=== PATIENT | male | born 1950 | race Hispanic/Latino ===

== ENCOUNTER 2018-07-19 15:16 | Emergency (ER) | payer OTHER ==
[2018-07-19] MEDS ORDERED: LORAZEPAM 0.5 MG TABLET ONE (17:09)
--- NOTE | 2018-07-19 17:21 | RAD REPORT ---
EXAM DESCRIPTION: RAD - Chest Single View - 07/19/2018 5:16 pm CLINICAL HISTORY: Chest pain, shortness of breath, hypertension COMPARISON: January 2018 TECHNIQUE: AP portable chest image was obtained 1707 hours . FINDINGS: No focal lung parenchymal process. No failure or volume overload. Lung markings are simila r to comparison. Heart and vasculature are normal. No measurable pleural effusion and no pneumothorax . No acute bony abnormality seen. No acute aortic findings suspected. IMPRESSION: No acute cardiopulmonary process. No significant interval change.
--- NOTE | 2018-07-19 18:15 | ER ---
Nurse's Notes [facility] Name: Viji Waller Age: 67 yrs Sex: Male : 1950 Arrival Date: 07/19/2018 Time: 15:17 Bed 5 Private MD: Stu Soriano R Diagnosis: Anxiety disorder, unspecified Presentation: 07/19 16:03 Presenting complaint: Patient states: SOB and anxiety that began this morning, also ph reports feeling light headed, hx of anxiety, denies pain or nausea. Transition of care: patient was not received from another setting of care. Onset of symptoms was July 19, 2018. Risk Assessment: Do you want to hurt yourself or someone else? Patient reports no desire to harm self or others. Initial Sepsis Screen: Does the patient meet any 2 criteria? No. Patient's initial sepsis screen is negative. Does the patient have a suspected source of infection? No. Patient's initial sepsis screen is negative. Care prior to arrival: None. 16:03 Method Of Arrival: Ambulatory ph 16:03 Acuity: AMEENA 3 ph Historical: - Allergies: 16:06 No Known Allergies; ph - PMHx: 16:06 Hypertension; Anxiety; ph - Immunization history:: Adult Immunizations up to date. - Social history:: Smoking status: Patient/guardian denies using tobacco. Screenin:00 Abuse screen: Denies threats or abuse. Denies injuries from another. Nutritional ch screening: No deficits noted. Tuberculosis screening: No symptoms or risk factors identified. Fall Risk None identified. Assessment: 17:00 Reassessment: Patient appears in no apparent distress at this time. Patient and/or ch family updated on plan of care and expected duration. Pain level reassessed. Patient is alert, oriented x 3, equal unlabored respirations, skin warm/dry/pink. General: Appears in no apparent distress. Pain: Denies pain. Cardiovascular: Heart tones S1 S2 present Capillary refill < 3 seconds in bilateral fingers toes Rhythm is regular. 17:00 Respiratory: Reports shortness of breath states he feels hot, and feels like he needs ch to take deep breaths and walk. pt states he has a hx of anxiety Airway is patent Respiratory effort is even, unlabored, Breath sounds are clear bilaterally. 18:32 Reassessment: Patient appears in no apparent distress at this time. No changes from previously documented assessment. Patient and/or family updated on plan of care and expected duration. Pain level reassessed. Patient is alert, oriented x 3, equal unlabored respirations, skin warm/dry/pink. Patient states feeling better. Patient states symptoms have improved. Vital Signs: 16:06 BP 154 / 93; Pulse 72; Resp 18; Temp 97.4; Pulse Ox 98% on R/A; Weight 81.65 kg; Height ph 5 ft. 9 in. (175.26 cm); Pain 0/10; 17:00 BP 146 / 86; Pulse 65; Resp 18; Pulse Ox 97% on R/A; Pain 0/10; ch 18:32 BP 154 / 90; Pulse 64; Resp 14; Temp 98.8; Pulse Ox 96% on R/A; Pain 0/10; ch 16:06 Body Mass Index 26.58 (81.65 kg, 175.26 cm) ph ED Course: 15:17 Patient arrived in ED. as 15:17 Stu Soriano MD is Private Physician. as 16:05 Triage completed. ph 16:06 Arm band placed on Patient placed in waiting room, Patient notified of wait time. ph 16:42 Luzmaria Kelley, CHLOE is Primary Nurse. sv 16:44 Deb Swann FNP-C [facility]. kb 16:44 Jv Mukherjee MD is Attending Physician. kb 17:00 No apparent distress. Resting quietly. ch 17:00 Patient has correct armband on for positive identification. Placed in gown. Bed in low ch position. Call light in reach. Side rails up X 1. Adult w/ patient. 17:00 No provider procedures requiring assistance completed. Patient did not have IV access ch during this emergency room visit. 17:04 X-ray completed. Portable x-ray completed in exam room. Patient tolerated procedure ls3 well. 17:12 Chest Single View XRAY In Process Unspecified. EDMS 17:57 Molly Keith, CHLOE is Primary Nurse. Administered Medications: 17:00 Drug: Ativan 0.5 mg Route: PO; ss Outcome: 18:14 Discharge ordered by . kb 18:32 Discharged to home ambulatory, with family. 18:32 Condition: improved 18:32 Discharge instructions given to patient, family, Instructed on discharge instructions, follow up and referral plans. no drinking with medication, no driving heavy equipment, medication usage, Demonstrated understanding of instructions, follow-up care, medications. 18:33 Patient left the ED. Signatures: Dispatcher [employer] EDRI Deb Swann, SOCIOLOGY ADJUNCT INSTRUCTOR-C SOCIOLOGY ADJUNCT INSTRUCTOR-Molly Bowser, CHLOE [place] Luzmaria Kelley RN RN sv Martinez, Amelia as Smirch, Shelby, RN RN Kimberlee Oswald RN RN Jocelyn Salazar 3
--- NOTE | 2018-07-19 18:15 | EDPHYS ---
Physician Documentation [facility] Name: Viji Waller Age: 67 yrs Sex: Male : 1950 Arrival Date: 07/19/2018 Time: 15:17 Bed 5 Private MD: Stu Soriano R ED Physician Jv Mukherjee HPI: 07/19 17:29 This 67 yrs old Male presents to ER via Ambulatory with complaints of kb Shortness Of Breath, Anxiety. 17:29 The patient presents to the emergency department with anxiety, over unknown kb circumstances. Onset: The symptoms/episode began/occurred this morning. Past psychiatric history: Prior diagnosis: anxiety. Associated signs and symptoms: Pertinent positives; anxiety, shortness of breath, Pertinent negatives: abdominal pain, chest pain, chills, delusions, depression, fever, hallucinations, headache, homicidal ideation, nausea, night sweats, palpitations, paranoia, substance abuse, suicide ideation, tremor, vomiting. Severity of symptoms: At their worst the symptoms were moderate in the emergency department the symptoms are unchanged. The patient has experienced similar episodes in the past. The patient has not recently seen a physician. Pt reports he has had anxiety and shortness of breath all day today. States he cannot sit still, has to keep walking. Reports he has to inhale and exhale stronger than he normally does. No resp distress noted. Pt reports he has been under some stress. states he used to take medication for anxiety, but stopped it because he didn't want to get addicted. Historical: - Allergies: 16:06 No Known Allergies; ph - PMHx: 16:06 Hypertension; Anxiety; ph - Immunization history:: Adult Immunizations up to date. - Social history:: Smoking status: Patient/guardian denies using tobacco. ROS: 17:34 Constitutional: Negative for fever, chills, and weight loss, ENT: Negative for injury, kb pain, and discharge, Neck: Negative for injury, pain, and swelling, Cardiovascular: Negative for chest pain, palpitations, and edema, Abdomen/GI: Negative for abdominal pain, nausea, vomiting, diarrhea, and constipation, Back: Negative for injury and pain, MS/Extremity: Negative for injury and deformity, Skin: Negative for injury, rash, and discoloration, Neuro: Negative for headache, weakness, numbness, tingling, and seizure. 17:34 Respiratory: Positive for shortness of breath, Negative for cough, dyspnea on exertion, hemoptysis, orthopnea, pleurisy, sputum production, wheezing. 17:34 Psych: Positive for anxiety, Negative for depression, drug dependence, alcohol dependence, auditory hallucinations, visual hallucinations, homicidal ideation, insomnia, suicide gesture, suicidal ideation. Exam: 17:34 Constitutional: This is a well developed, well nourished patient who is awake, alert, kb and in no acute distress. Head/Face: Normocephalic, atraumatic. Neck: Trachea midline, no thyromegaly or masses palpated, and no cervical lymphadenopathy. Supple, full range of motion without nuchal rigidity, or vertebral point tenderness. No Meningismus. Chest/axilla: Normal chest wall appearance and motion. Nontender with no deformity. No lesions are appreciated. Cardiovascular: Regular rate and rhythm with a normal S1 and S2. No gallops, murmurs, or rubs. Normal PMI, no JVD. No pulse deficits. Respiratory: Lungs have equal breath sounds bilaterally, clear to auscultation and percussion. No rales, rhonchi or wheezes noted. No increased work of breathing, no retractions or nasal flaring. Abdomen/GI: Soft, non-tender, with normal bowel sounds. No distension or tympany. No guarding or rebound. No evidence of tenderness throughout. Skin: Warm, dry with normal turgor. Normal color with no rashes, no lesions, and no evidence of cellulitis. MS/ Extremity: Pulses equal, no cyanosis. Neurovascular intact. Full, normal range of motion. Neuro: Awake and alert, GCS 15, oriented to person, place, time, and situation. Cranial nerves II-XII grossly intact. Motor strength 5/5 in all extremities. Sensory grossly intact. Cerebellar exam normal. Normal gait. Psych: Awake, alert, with orientation to person, place and time. Behavior, mood, and affect are within normal limits. Vital Signs: 16:06 BP 154 / 93; Pulse 72; Resp 18; Temp 97.4; Pulse Ox 98% on R/A; Weight 81.65 kg; Height ph 5 ft. 9 in. (175.26 cm); Pain 0/10; 17:00 BP 146 / 86; Pulse 65; Resp 18; Pulse Ox 97% on R/A; Pain 0/10; ch 18:32 BP 154 / 90; Pulse 64; Resp 14; Temp 98.8; Pulse Ox 96% on R/A; Pain 0/10; ch 16:06 Body Mass Index 26.58 (81.65 kg, 175.26 cm) ph MDM: 16:44 Patient medically screened. kb 17:29 Data reviewed: vital signs, nurses notes. Data interpreted: Pulse oximetry: on room air kb is 98 %. Interpretation: normal. Counseling: I had a detailed discussion with the patient and/or guardian regarding: the historical points, exam findings, and any diagnostic results supporting the discharge/admit diagnosis, radiology results, the need for outpatient follow up, a family practitioner, to return to the emergency department if symptoms worsen or persist or if there are any questions or concerns that arise at home. 18:16 ED course: Pt states the medication helped a little, but he still doesn't want to lay kb down. States his symptoms really are worse when he gets hot. States the AC at home doesn't work well enough and he gets anxious when it's hot in there. . 07/19 16:55 Order name: Chest Single View XRAY; Complete Time: 17:28 kb Administered Medications: 17:00 Drug: Ativan 0.5 mg Route: PO; ss Disposition: 07/20 07:04 Co-signature as Attending Physician, Jv Mukherjee MD I agree with the assessment and kdr plan of care. Disposition: 07/19/18 18:14 Discharged to Home. Impression: Anxiety disorder, unspecified. - Condition is Stable. - Discharge Instructions: Panic Attacks, [id number], Generalized Anxiety Disorder. - Prescriptions for Hydroxyzine HCl 25 mg Oral Tablet - take 1 tablet by ORAL route 2 times per day As needed; 20 tablet. - Medication Reconciliation Form, Thank You Letter, Antibiotic Education, Prescription Opioid Use form. - Follow up: Emergency Department; When: As needed; Reason: Worsening of condition. Follow up: Private Physician; When: 2 - 3 days; Reason: Recheck today's complaints, Continuance of care, Re-evaluation by your physician. Signatures: Dispatcher [employer] Deb Mcdonald, JAY-C JAY-Molly Bowser, RN RN ch Jv Mukherjee MD MD [facility] Vannesa Knight RN RN Kimberlee Oswald RN RN ph Corrections: (The following items were deleted from the chart) 07/19 18:33 18:14 07/19/2018 18:14 Discharged to Home. Impression: Anxiety disorder, unspecified. Condition is Stable. Discharge Instructions: Panic Attacks, [id number], Generalized Anxiety Disorder. Forms are Medication Reconciliation Form, Thank You Letter, Antibiotic Education, Prescription Opioid Use. Follow up: Emergency Department; When: As needed; Reason: Worsening of condition. Follow up: Private Physician; When: 2 - 3 days; Reason: Recheck today's complaints, Continuance of care, Re-evaluation by your physician. kb
[2018-07-19 18:40] VITALS: BP 154/90; TEMP 98.8; O2SAT 96
== END 2018-07-19 18:33 | disposition home or self-care (01) ==
LOC: ER 15:16
DX: F41.9 Anxiety disorder, unspecified (principal); I10 Essential (primary) hypertension
CPT/HCPCS: 71045; 99283

== ENCOUNTER 2018-12-04 10:58 | Emergency (ER) | payer OTHER ==
--- OUTSIDE RECORDS SUMMARY | 2018-12-04 11:01 | XMS REPORT ---
:1950 [facility] Address [address] [place] [address] Dr. Nazario [address] [place] [address] Care Team Providers Name Role Phone Unavailable Unavailable Unavailable Problems This patient has no known problems. Allergies, Adverse Reactions, Alerts This patient has no known allergies or adverse reactions. Medications This patient has no known medications.
[2018-12-04 11:58] LABS: Hematocrit 45.7 % (39.6-49.0); Lymphocytes % 29.2 % (15.3-44.8); MPV 8.2 fL (7.6-11.3); Protime INR 1.07; RBC Red Blood Cell Count 4.87 M/uL (4.33-5.43)
[2018-12-04 12:06] LABS: ALT/SGPT 18 U/L (12-78); AST/SGOT 12 U/L (15-37); Albumin 4.1 g/dL (3.4-5.0); Alkaline Phosphatase 105 U/L (45-117); BUN Blood Urea Nitrogen 17 mg/dL (7-18); Bicarbonate 26 mmol/L (21-32); Bilirubin Direct 0.2 mg/dL (0-0.2); Bilirubin Total 0.8 mg/dL (0.2-1.0); Glucose Level 94 mg/dL (74-106); NT PRO-BNP 61 pg/mL (<125); Protein, Total 7.7 g/dL (6.4-8.2); Sodium Level 143 mmol/L (136-145); Troponin (Emerg Dept Use Only) < 0.02 ng/mL (0.0-0.045)
--- NOTE | 2018-12-04 12:17 | RAD REPORT ---
EXAM DESCRIPTION: RAD - Chest Single View - 12/04/2018 12:03 pm CLINICAL HISTORY: COUGH Chest pain. COMPARISON: Chest Single View dated 07/19/2018; Chest Pa And Lat (2 Views) dated 01/20/2018; Chest Sing le View dated 02/18/2016; CHEST SINGLE VIEW dated 07/20/2014 FINDINGS: Portable technique limits examination quality. The lungs are grossly clear. The heart is normal in size. No displaced fractures. IMPRESSION: No acute intrathoracic process suspected.
[2018-12-04 12:42] LABS: Urine Blood NEGATIVE (NEG); Urine Glucose NEGATIVE (NEG); Urine Protein TRACE (NEG)
--- NOTE | 2018-12-04 13:31 | RAD REPORT ---
EXAM DESCRIPTION: RAD - Lumbar Spine 3 Views - 12/04/2018 1:24 pm CLINICAL HISTORY: PAIN Radiculopathy COMPARISON: LUMBAR SPINE 3 VIEWS dated 08/08/2008 FINDINGS: Vertebral body heights appear maintained. No compression fracture noted. Mild multilevel s pondylosis is present throughout the lumbar spine with disc thinning and small posterior osteophytes. No spondylolysis or spondylolisthesis. IMPRESSION: Mild diffuse lumbar spondylosis.
--- NOTE | 2018-12-04 13:35 | EKG ---
Test Date: 2018-12-04 Test Time: 11:27:15 Change Management Director: YAMILKA MEASUREMENT RESULTS: Intervals: Rate: 60 NC: 186 QRSD: 90 QT: 436 QTc: 436 Lester: P: 64 NC: 186 QRS: 16 T: 71 INTERPRETIVE STATEMENTS: Normal sinus rhythm Normal ECG Compared to ECG 02/18/2016 16:37:36 No significant changes Electronically Signed On 12-04-18 13:34:12 CDT by Roosevelt Amado
[2018-12-04] MEDS ORDERED: AMLODIPINE 5 MG TAB ONE (14:01)
[2018-12-04] MEDS ORDERED: KETOROLAC 30 MG/ML INJ ONE (14:01)
[2018-12-04] MEDS ORDERED: DIAZEPAM 10 MG/2 ML INJ SYRINGE ONE (14:01)
--- NOTE | 2018-12-04 14:02 | EDPHYS ---
Physician Documentation [facility] Name: Viji Waller Age: 68 yrs Sex: Male : 1950 Arrival Date: 12/04/2018 Time: 11:01 Bed 13 Private MD: ED Physician Jon Sheriff HPI: 12/04 12:27 This 68 yrs old Male presents to ER via Ambulatory with complaints of susan Breathing Difficulty. 12:27 The patient has shortness of breath at rest, with light activity. Onset: The susan symptoms/episode began/occurred 6 day(s) ago. Duration: The symptoms are intermittent, with episodes lasting seconds at a time. The patient's shortness of breath is aggravated by supine position, is alleviated by sitting up, application of supplemental oxygen. Associated signs and symptoms: The patient has no apparent associated signs or symptoms. Severity of symptoms: At their worst the symptoms were mild in the emergency department the symptoms are unchanged. The patient has experienced similar episodes in the past, a few times. Historical: - Allergies: 11: No Known Allergies; bp - Home Meds: 11:09 Ativan 1 mg Oral tab 1 tab 3 times per day [Active]; indomethacin 25 mg Oral cap 1 cap bp 3 times per day [Active]; hydroxyzine HCl 25 mg Oral tab 1 tab 3 times per day [Active]; allopurinol 100 mg Oral tab 1 tab once daily [Active]; lisinopril 40 mg Oral tab 1 tab once daily [Active]; - PMHx: 11:09 Anxiety; Hypertension; Arthritis; bp - Immunization history:: Adult Immunizations up to date. - Social history:: Smoking status: Patient/guardian denies using tobacco. - Ebola Screening: : No symptoms or risks identified at this time. ROS: 12:28 Constitutional: Negative for fever, chills, and weight loss, Eyes: Negative for injury, susan pain, redness, and discharge, ENT: Negative for injury, pain, and discharge, Neck: Negative for injury, pain, and swelling, Cardiovascular: Negative for chest pain, palpitations, and edema, Abdomen/GI: Negative for abdominal pain, nausea, vomiting, diarrhea, and constipation, Back: Negative for injury and pain, : Negative for injury, bleeding, discharge, and swelling, MS/Extremity: Negative for injury and deformity, Skin: Negative for injury, rash, and discoloration, Neuro: Negative for headache, weakness, numbness, tingling, and seizure, Psych: Negative for depression, anxiety, suicide ideation, homicidal ideation, and hallucinations, Allergy/Immunology: Negative for hives, rash, and allergies, Endocrine: Negative for neck swelling, polydipsia, polyuria, polyphagia, and marked weight changes, Hematologic/Lymphatic: Negative for swollen nodes, abnormal bleeding, and unusual bruising. 12:28 Respiratory: Positive for cough, dyspnea on exertion, orthopnea, shortness of breath. Exam: 12:28 Constitutional: This is a well developed, well nourished patient who is awake, alert, susan and in no acute distress. Head/Face: Normocephalic, atraumatic. Eyes: Pupils equal round and reactive to light, extra-ocular motions intact. Lids and lashes normal. Conjunctiva and sclera are non-icteric and not injected. Cornea within normal limits. Periorbital areas with no swelling, redness, or edema. ENT: Nares patent. No nasal discharge, no septal abnormalities noted. Tympanic membranes are normal and external auditory canals are clear. Oropharynx with no redness, swelling, or masses, exudates, or evidence of obstruction, uvula midline. Mucous membranes moist. Neck: Trachea midline, no thyromegaly or masses palpated, and no cervical lymphadenopathy. Supple, full range of motion without nuchal rigidity, or vertebral point tenderness. No Meningismus. Chest/axilla: Normal chest wall appearance and motion. Nontender with no deformity. No lesions are appreciated. Cardiovascular: Regular rate and rhythm with a normal S1 and S2. No gallops, murmurs, or rubs. Normal PMI, no JVD. No pulse deficits. Respiratory: Lungs have equal breath sounds bilaterally, clear to auscultation and percussion. No rales, rhonchi or wheezes noted. No increased work of breathing, no retractions or nasal flaring. Abdomen/GI: Soft, non-tender, with normal bowel sounds. No distension or tympany. No guarding or rebound. No evidence of tenderness throughout. Back: No spinal tenderness. No costovertebral tenderness. Full range of motion. Male : Normal genitalia with no discharge or lesions. Skin: Warm, dry with normal turgor. Normal color with no rashes, no lesions, and no evidence of cellulitis. MS/ Extremity: Pulses equal, no cyanosis. Neurovascular intact. Full, normal range of motion. Neuro: Awake and alert, GCS 15, oriented to person, place, time, and situation. Cranial nerves II-XII grossly intact. Motor strength 5/5 in all extremities. Sensory grossly intact. Cerebellar exam normal. Normal gait. Psych: Awake, alert, with orientation to person, place and time. Behavior, mood, and affect are within normal limits. Vital Signs: 11:09 BP 194 / 101; Pulse 64; Resp 20; Temp 97.1; Pulse Ox 96% ; Weight 83.91 kg; Height 5 bp ft. 9 in. (175.26 cm); 12:00 BP 190 / 99; Pulse 67; Resp 16; Pulse Ox 96% on R/A; ph 13:07 BP 187 / 96; Pulse 65; Resp 18; Pulse Ox 97% on R/A; ph 14:22 BP 168 / 108; Pulse 67; Resp 18; Temp 98.0; Pulse Ox 97% on R/A; ph 11:09 Body Mass Index 27.32 (83.91 kg, 175.26 cm) bp 13:07 pt states that he did not take BP medicine this morning ph MDM: 11:12 Patient medically screened. [facility] 12:30 Data reviewed: vital signs, nurses notes, lab test result(s), EKG, radiologic studies, susan plain films. 12/04 11:14 Order name: Basic Metabolic Panel; Complete Time: 12:27 [facility] 12/04 11:14 Order name: CBC with Diff; Complete Time: 12:27 [facility] 12/04 11:14 Order name: LFT's; Complete Time: 12:27 [facility] 12/04 11:14 Order name: Magnesium; Complete Time: 12:27 [facility] 12/04 11:14 Order name: NT PRO-BNP; Complete Time: 12:27 [facility] 12/04 11:14 Order name: PT-INR; Complete Time: 12:27 [facility] 12/04 11:14 Order name: Troponin (emerg Dept Use Only); Complete Time: 12:27 [facility] 12/04 11:14 Order name: XRAY Chest (1 view); Complete Time: 13:06 [facility] 12/04 11:14 Order name: Blood Culture Adult (2) [facility] 12/04 11:14 Order name: Urine Culture [facility] 12/04 12:01 Order name: Urine Dipstick--Ancillary (enter results); Complete Time: 13:06 12/04 12:27 Order name: D-Dimer; Complete Time: 13:22 [facility] 12/04 12:27 Order name: Lumbar Spine (3 Views) XRAY [facility] 12/04 11:14 Order name: EKG; Complete Time: 11:19 [facility] 12/04 11:14 Order name: Cardiac monitoring; Complete Time: 11:43 [facility] 12/04 11:14 Order name: EKG - Nurse/Tech; Complete Time: :43 [facility] 12/04 11:14 Order name: IV Saline Lock; Complete Time: :43 [facility] 12/04 11:14 Order name: Labs collected and sent; Complete Time: : [facility] 12/04 11:14 Order name: O2 Per Protocol; Complete Time: :43 [facility] 12/04 11:14 Order name: O2 Sat Monitoring; Complete Time: :43 [facility] 12/04 11:14 Order name: Urine Dipstick-Ancillary (obtain specimen); Complete Time: 11:42 [facility] Administered Medications: 14:00 Drug: Norvasc 10 mg Route: PO; ph 14:21 Follow up: Response: No adverse reaction ph 14:00 Drug: Valium 5 mg Route: IVP; Site: right antecubital; ph 14:21 Follow up: Response: No adverse reaction; Pain is decreased ph 14:00 Drug: TORadol 30 mg Route: IVP; Site: right antecubital; ph 14:21 Follow up: Response: No adverse reaction; Pain is decreased ph 14:21 Not Given (Other Intervention Used): NS 0.9% 1000 ml IV at 125 ml/hr continuous ph Disposition: 12/04/18 13:31 Discharged to Home. Impression: Dyspnea, Low back pain, Anxiety disorder, unspecified, Essential (primary) hypertension. - Condition is Stable. - Discharge Instructions: Back Pain, Adult, Hypertension, Musculoskeletal Pain, Shortness of Breath, Shortness of Breath, Obtx-mh-Lhul, Back Injury Prevention, Devz-qh-Hihy, Hypertension, Oflg-pe-Pwzg, Back Pain, Adult, Sxvc-tj-Lznm, How to Take Your Blood Pressure, Wdqm-ft-Oics, Managing Your Hypertension. - Prescriptions for Ibuprofen 600 mg Oral Tablet - take 1 tablet by ORAL route every 8 hours As needed take with food; 21 tablet. Tylenol- Codeine #3 300-30 mg Oral Tablet - take 2 tablet by ORAL route every 6 hours As needed; 30 tablet. Cyclobenzaprine 5 mg Oral Tablet - take 1 tablet by ORAL route 3 times per day As needed; 15 tablet. Norvasc 5 mg Oral Tablet - take 1 tablet by ORAL route once daily; 20 tablet. Lisinopril 20 mg Oral Tablet - take 1 tablet by ORAL route once daily; 20 tablet. - Medication Reconciliation Form, Thank You Letter, Antibiotic Education, Prescription Opioid Use form. - Follow up: Private Physician; When: 2 - 3 days; Reason: Recheck today's complaints, Continuance of care, Re-evaluation by your physician. Follow up: Roosevelt Amado; When: 2 - 3 days; Reason: Recheck today's complaints, Re-evaluation by your physician. - Problem is new. - Symptoms have improved. Signatures: Dispatcher [employer] EDMS Jon Sheriff MD MD cha Hall, Patricia, CHLOE RN ph Dada Figueroa RN RN bp Corrections: (The following items were deleted from the chart) 14:24 13:31 12/04/2018 13:31 Discharged to Home. Impression: Dyspnea; Low back pain; Anxiety ph disorder, unspecified; Essential (primary) hypertension. Condition is Stable. Discharge Instructions: Back Pain, Adult, Musculoskeletal Pain, Shortness of Breath, Shortness of Breath, Wimp-fk-Tqjn, Back Injury Prevention, Nnzc-bn-Noin, Back Pain, Adult, Pmmr-uj-Fpjc, Hypertension, Hypertension, Gpnq-cc-Cjis, How to Take Your Blood Pressure, Klmj-xb-Rdjs, Managing Your Hypertension. Prescriptions for Ibuprofen 600 mg Oral Tablet - take 1 tablet by ORAL route every 8 hours As needed take with food; 21 tablet, Tylenol-Codeine #3 300-30 mg Oral Tablet - take 2 tablet by ORAL route every 6 hours As needed; 30 tablet, Cyclobenzaprine 5 mg Oral Tablet - take 1 tablet by ORAL route 3 times per day As needed; 15 tablet, Norvasc 5 mg Oral Tablet - take 1 tablet by ORAL route once daily; 20 tablet, Lisinopril 20 mg Oral Tablet - take 1 tablet by ORAL route once daily; 20 tablet. and Forms are Medication Reconciliation Form, Thank You Letter, Antibiotic Education, Prescription Opioid Use. Follow up: Private Physician; When: 2 - 3 days; Reason: Recheck today's complaints, Continuance of care, Re-evaluation by your physician. Follow up: Roosevelt Amado; When: 2 - 3 days; Reason: Recheck today's complaints, Re-evaluation by your physician. Problem is new. Symptoms have improved. susan
--- NOTE | 2018-12-04 14:02 | ER ---
Nurse's Notes [facility] Name: Viji Waller Age: 68 yrs Sex: Male : 1950 Arrival Date: 12/04/2018 Time: 11:01 Bed 13 Private MD: Diagnosis: Dyspnea;Low back pain;Anxiety disorder, unspecified;Essential (primary) hypertension Presentation: 12/04 11:05 Presenting complaint: Patient states: SOB WITH INABILITY TO RECLINE x2 DAYS. Transition bp of care: patient was not received from another setting of care. Onset of symptoms is unknown. Risk Assessment: Do you want to hurt yourself or someone else? Patient reports no desire to harm self or others. Initial Sepsis Screen: Does the patient meet any 2 criteria? No. Patient's initial sepsis screen is negative. Does the patient have a suspected source of infection? No. Patient's initial sepsis screen is negative. Care prior to arrival: None. 11:05 Method Of Arrival: Ambulatory bp 11:05 Acuity: AMEENA 3 bp Historical: - Allergies: 11: No Known Allergies; bp - Home Meds: 11:09 Ativan 1 mg Oral tab 1 tab 3 times per day [Active]; indomethacin 25 mg Oral cap 1 cap bp 3 times per day [Active]; hydroxyzine HCl 25 mg Oral tab 1 tab 3 times per day [Active]; allopurinol 100 mg Oral tab 1 tab once daily [Active]; lisinopril 40 mg Oral tab 1 tab once daily [Active]; - PMHx: 11:09 Anxiety; Hypertension; Arthritis; bp - Immunization history:: Adult Immunizations up to date. - Social history:: Smoking status: Patient/guardian denies using tobacco. - Ebola Screening: : No symptoms or risks identified at this time. Screenin:09 Abuse screen: Denies threats or abuse. Denies injuries from another. Nutritional ph screening: No deficits noted. Tuberculosis screening: No symptoms or risk factors identified. Fall Risk None identified. Assessment: 11:30 General: Appears in no apparent distress. comfortable, well groomed, Behavior is calm, ph cooperative, appropriate for age, Denies fever. Pain: Complains of pain in lumbar area Pain began reports hx of low back p[ain. Neuro: Level of Consciousness is awake, alert, obeys commands, Oriented to person, place, time, situation. Cardiovascular: Reports shortness of breath, Denies chest pain, nausea, vomiting, Capillary refill < 3 seconds in bilateral fingers Patient's skin is warm and dry. Respiratory: Reports shortness of breath on exertion cough that is productive, w/ clear/ white mucus Airway is patent Respiratory effort is even, unlabored, Respiratory pattern is regular, symmetrical, Breath sounds are clear bilaterally. GI: No signs and/or symptoms were reported involving the gastrointestinal system. Derm: Skin is intact, is healthy with good turgor, Skin is pink, warm \T\ dry. Musculoskeletal: Circulation, motion, and sensation intact. Range of motion: intact in all extremities, Swelling absent. 12:30 Reassessment: Patient appears in no apparent distress at this time. Patient and/or ph family updated on plan of care and expected duration. Pain level reassessed. Patient is alert, oriented x 3, equal unlabored respirations, skin warm/dry/pink. 13:30 Reassessment: Patient appears in no apparent distress at this time. Patient and/or ph family updated on plan of care and expected duration. Pain level reassessed. Patient is alert, oriented x 3, equal unlabored respirations, skin warm/dry/pink. Vital Signs: 11:09 BP 194 / 101; Pulse 64; Resp 20; Temp 97.1; Pulse Ox 96% ; Weight 83.91 kg; Height 5 bp ft. 9 in. (175.26 cm); 12:00 BP 190 / 99; Pulse 67; Resp 16; Pulse Ox 96% on R/A; ph 13:07 BP 187 / 96; Pulse 65; Resp 18; Pulse Ox 97% on R/A; ph 14:22 BP 168 / 108; Pulse 67; Resp 18; Temp 98.0; Pulse Ox 97% on R/A; ph 11:09 Body Mass Index 27.32 (83.91 kg, 175.26 cm) bp 13:07 pt states that he did not take BP medicine this morning ph ED Course: 11:01 Patient arrived in ED. mr 11:07 Triage completed. bp 11:09 Arm band placed on. bp 11:10 Kimberlee Oswald, CHLOE is Primary Nurse. ph 11:11 Jon Sheriff MD is Attending Physician. susan 11:34 EKG done, by career guidance technician. reviewed by Jon Sheriff MD. at1 11:35 Inserted saline lock: 20 gauge in right antecubital area, using aseptic technique. ph 12:17 XRAY Chest (1 view) In Process Unspecified. EDMS 13:11 Patient has correct armband on for positive identification. Bed in low position. Call ph light in reach. Side rails up X 1. school lunch monitor on. Pulse ox on. NIBP on. Door closed. Noise minimized. Warm blanket given. 13:26 Lumbar Spine (3 Views) XRAY In Process Unspecified. EDMS 13:31 Roosevelt Amado MD is Referral Physician. [facility] 14:22 No provider procedures requiring assistance completed. IV discontinued, intact, ph bleeding controlled, No redness/swelling at site. Pressure dressing applied. Administered Medications: 14:00 Drug: Norvasc 10 mg Route: PO; ph 14:21 Follow up: Response: No adverse reaction ph 14:00 Drug: Valium 5 mg Route: IVP; Site: right antecubital; ph 14:21 Follow up: Response: No adverse reaction; Pain is decreased ph 14:00 Drug: TORadol 30 mg Route: IVP; Site: right antecubital; ph 14:21 Follow up: Response: No adverse reaction; Pain is decreased ph 14:21 Not Given (Other Intervention Used): NS 0.9% 1000 ml IV at 125 ml/hr continuous ph Outcome: 13:31 Discharge ordered by . susan 14:23 Discharged to home ambulatory, with significant other. ph 14:23 Condition: good 14:23 Discharge instructions given to patient, Instructed on discharge instructions, follow up and referral plans. medication usage, Demonstrated understanding of instructions, follow-up care, medications, Prescriptions given X 5 14:24 Patient left the ED. ph Signatures: Dispatcher [employer] EDME Jon Sheriff MD MD cha Rivera, Lucille Elif Gary, remote sensing technologist EKG Tat1 Kimberlee Oswald RN RN Dada Mccollum RN RN bp
[2018-12-04 15:06] VITALS: O2SAT 97
[2018-12-04 15:07] VITALS: BP 168/108; TEMP 98
== END 2018-12-04 14:24 | disposition home or self-care (01) ==
LOC: ER 10:58
DX: F41.9 Anxiety disorder, unspecified (principal); I10 Essential (primary) hypertension; M54.5 Low back pain
CPT/HCPCS: 93005; 87040 ×2; 87088; 85025; 87086; 80048; 36415; 83735; 85610; 85379; 80076; 81003; 84484; 83880; 71045; 72100; 96375; 96374; 99284; J3360

== ENCOUNTER 2019-10-14 11:35 | Emergency (ER) | payer OTHER ==
--- OUTSIDE RECORDS SUMMARY | 2019-10-14 11:39 | XMS REPORT | Continuity of Care Document ---
:1950 Author Organization [facility] t Address [address] [place] [address] [address] [place] [address] Care Team Providers Name Role Phone Ruslan CORONA, R Attending Clinician Unavailable Pob1, Care Clinic Attending Clinician Unavailable Problems This patient has no known problems. Allergies, Adverse Reactions, Alerts This patient has no known allergies or adverse reactions. Medications This patient has no known medications. Procedures This patient has no known procedures. Encounters Start End Encounter Admission Attending Care Care Encounter Source Date/Time Date/Time Type Type Clinicians Facility Department ID 2019-06-29 2019-06-29 Telephone REINA Mercer [id number] 00:00:00 00:00:00 Marisol ADAM [id number] [facility] [id number] 2019-06-28 2019-06-28 Urgent Pob1, Acute [facility] [id number] 16:56:41 17:40:47 [facility] [id number] [place] [id number] [facility] [id number] [address] [address] Results This patient has no known results.
--- NOTE | 2019-10-14 13:37 | RAD REPORT ---
EXAM DESCRIPTION: RAD - Elbow Right 3 View - 10/14/2019 1:31 pm CLINICAL HISTORY: Elbow pain FINDINGS: No fracture or dislocation is seen. Large joint effusion Bony/calcific density adjacent to the olecranon process appears chronic
[2019-10-14] MEDS ORDERED: KETOROLAC 30 MG/ML INJ ONE (13:43)
[2019-10-14] MEDS ORDERED: dexAMETHasone 10 MG/ML VIAL ONE (13:43)
[2019-10-14 14:00] LABS: Basophils % 0.8 % (0-1.3); Hematocrit 48.3 % (39.6-49.0); Lymphocytes % 18.5 % (15.3-44.8); MPV 8.4 fL (7.6-11.3)
[2019-10-14 14:13] LABS: ALT/SGPT 33 U/L (12-78); AST/SGOT 19 U/L (15-37); Albumin 3.9 g/dL (3.4-5.0); Alkaline Phosphatase 133 U/L (45-117); BUN Blood Urea Nitrogen 9 mg/dL (7-18); Bicarbonate 27 mmol/L (21-32); Bilirubin Total 0.8 mg/dL (0.2-1.0); Glucose Level 106 mg/dL (74-106); Potassium 3.9 mmol/L (3.5-5.1); Protein, Total 7.9 g/dL (6.4-8.2); Sodium Level 140 mmol/L (136-145); Uric Acid 8.2 mg/dL (3.5-7.2)
[2019-10-14] MEDS ORDERED: MORPHINE 4 MG/ML SYR ONE (15:37)
[2019-10-14] MEDS ORDERED: ONDANSETRON 4 MG/2 ML VIAL ONE (15:38)
[2019-10-14] MEDS ORDERED: COLCHICINE 0.6 MG TAB ONE ×2 (15:38→16:33)
--- NOTE | 2019-10-14 16:02 | EDPHYS ---
Physician Documentation [facility] Name: Viji Waller Age: 68 yrs Sex: Male : 1950 Arrival Date: 10/14/2019 Time: 11:45 Bed 19 Private MD: ED Physician Hawa Nieto HPI: 10/13 14:34 This 68 yrs old Male presents to ER via Ambulatory with complaints of Arm pm1 Pain, Hand swelling. 14:34 The patient or guardian complains of pain, swelling. The complaints affect the right pm1 elbow. 14:34 Context: The problem was sustained at home, resulted from possible from breakfast pm1 yesterday morning and compliance with allopurinol. Patient does not want to take his allopurinol. Onset: The symptoms/episode began/occurred last night. Treatment prior to arrival includes: no previous treatment. Modifying factors: The symptoms are alleviated by remaining still, sling from home. the symptoms are aggravated by movement, bending arm. Associated signs and symptoms: Pertinent negatives: decreased range of motion, deformity, fever, erythema. Severity of symptoms: in the emergency department the symptoms are actually worse. Has had gout flare ups in the past. The patient has not recently seen a physician, the patient's primary care provider is Dr. Connors. Historical: - Allergies: 11:55 No Known Allergies; ss - PMHx: 11:55 Anxiety; Arthritis; Hypertension; ss - Immunization history:: Adult Immunizations up to date. - Social history:: Smoking status: Patient denies any tobacco usage or history of. ROS: 14:34 Constitutional: Negative for fever, chills, and weight loss, Eyes: Negative for injury, pm1 pain, redness, and discharge, ENT: Negative for injury, pain, and discharge, Neck: Negative for injury, pain, and swelling, Cardiovascular: Negative for chest pain, palpitations, and edema, Respiratory: Negative for shortness of breath, cough, wheezing, and pleuritic chest pain, Abdomen/GI: Negative for abdominal pain, nausea, vomiting, diarrhea, and constipation, Back: Negative for injury and pain. 14:34 Skin: Negative for injury, rash, and discoloration, Neuro: Negative for headache, weakness, numbness, tingling, and seizure. 14:34 MS/extremity: Positive for pain, swelling, tenderness, of the right elbow, Negative for decreased range of motion, deformity. Exam: 14:34 Constitutional: This is a well developed, well nourished patient who is awake, alert, pm1 and in no acute distress. Head/Face: Normocephalic, atraumatic. 14:34 Skin: Warm, dry with normal turgor. Normal color with no rashes, no lesions, and no evidence of cellulitis. 14:34 Cardiovascular: Exam negative for acute changes, Rate: normal, Rhythm: regular, Pulses: no pulse deficits are appreciated. 14:34 Respiratory: Exam negative for acute changes, respiratory distress, shortness of breath. 14:34 Abdomen/GI: Exam negative for acute changes, Inspection: abdomen appears normal, Palpation: abdomen is soft and non-tender, in all quadrants. 14:34 Musculoskeletal/extremity: Extremities: grossly normal except: noted in the right elbow: tenderness, effusion, There is no evidence of decreased ROM, deformity, erythema, Pulses: noted to be 2+ in the right radial artery and left radial artery. 14:34 Neuro: Exam negative for acute changes, Orientation: is normal, Mentation: is normal, Motor: is normal, moves all fours, Sensation: is normal, no obvious gross deficits. Vital Signs: 11:51 BP 207 / 103; Pulse 70; Resp 16; Temp 97.5(TE); Pulse Ox 98% on R/A; Weight 83.91 kg; ss Height 5 ft. 8 in. (172.72 cm); Pain 8/10; 11:51 Body Mass Index 28.13 (83.91 kg, 172.72 cm) MDM: 12:39 Patient medically screened. pm1 16:00 Data reviewed: vital signs. Data interpreted: Pulse oximetry: on room air is 98 %. pm1 Interpretation: normal. 16:00 Counseling: I had a detailed discussion with the patient and/or guardian regarding: the pm1 historical points, exam findings, and any diagnostic results supporting the discharge/admit diagnosis, lab results, radiology results, the need for outpatient follow up, to return to the emergency department if symptoms worsen or persist or if there are any questions or concerns that arise at home. 16:01 ED course: Patient was given colcrys 1.2 mg at 1530. Patient's is on the way to pm1 pick him up and he wants to go home now because he is hungry. Informed the patient that if he is still hurting, that I can give him additional colcrys which should help. However he just has to wait a few more minutes to take it at 1630. 10/13 12:44 Order name: CBC with Diff; Complete Time: 14:29 pm1 10/13 12:44 Order name: CMP; Complete Time: 14:29 pm1 10/13 12:44 Order name: Elbow Right 3 View XRAY; Complete Time: 14:06 pm1 10/13 12:44 Order name: Uric Acid; Complete Time: 14:29 pm1 10/13 12:44 Order name: IV Saline Lock; Complete Time: 13:54 pm1 Administered Medications: 13:45 Drug: Decadron - Dexamethasone 10 mg Route: IVP; Site: left antecubital; 15:37 Follow up: Response: No adverse reaction 13:45 Drug: TORadol - Ketorolac 15 mg Route: IVP; Site: left antecubital; 15:37 Follow up: Response: No adverse reaction 15:30 Drug: Colcrys 1.2 mg Route: PO; ah 16:30 Follow up: Response: No adverse reaction 15:30 Drug: morphine 4 mg Route: IVP; Site: left antecubital; 16:30 Follow up: Response: No adverse reaction 15:30 Drug: Zofran (Ondansetron) 4 mg Route: IVP; Site: left antecubital; 16:30 Follow up: Response: No adverse reaction 16:34 Drug: Colcrys 0.6 mg Route: PO; 16:35 Follow up: Response: Medication administered at discharge. Disposition: 17:53 Co-signature as Attending Physician, Hawa Nieto MD. ma2 Disposition: 10/14/19 16:02 Discharged to Home. Impression: Gout - RIGHT ELBOW. - Condition is Stable. - Discharge Instructions: Gout. - Prescriptions for Tylenol- Codeine #3 300-30 mg Oral Tablet - take 2 tablets by ORAL route every 6 hours As needed; 20 tablet. Medrol (Braden) 4 mg Oral Tablets, Dose Pack - take 1 tablet by ORAL route as directed - follow package instructions; 1 packet. - Medication Reconciliation Form, Thank You Letter, Antibiotic Education, Prescription Opioid Use form. - Follow up: Emergency Department; When: As needed; Reason: Worsening of condition. Follow up: Private Physician; When: 2 - 3 days; Reason: Recheck today's complaints, Continuance of care, Re-evaluation by your physician. - Problem is new. - Symptoms have improved. Signatures: Dispatcher [employer] EDLA Vannesa Knight RN RN Mauricio Cruz NP MEDICAL APPOINTMENT CLERK pm1 Hawa Nieto MD MD dc2 Philly Amado RN RN Corrections: (The following items were deleted from the chart) 16:59 16:02 10/14/2019 16:02 Discharged to Home. Impression: Gout - RIGHT ELBOW. Condition is ah Stable. Forms are Medication Reconciliation Form, Thank You Letter, Antibiotic Education, Prescription Opioid Use. Follow up: Emergency Department; When: As needed; Reason: Worsening of condition. Follow up: Private Physician; When: 2 - 3 days; Reason: Recheck today's complaints, Continuance of care, Re-evaluation by your physician. Problem is new. Symptoms have improved. pm1
--- NOTE | 2019-10-14 16:02 | ER ---
Nurse's Notes [facility] Name: Viji Waller Age: 68 yrs Sex: Male : 1950 Arrival Date: 10/14/2019 Time: 11:45 Bed 19 Private MD: Diagnosis: Gout-RIGHT ELBOW Presentation: 10/13 11:51 Chief complaint: Patient states: "Yesterday morning I ate a breakfast taco, and I don't ss know if it flared up my RA, but later that evening, my elbow started getting all swollen." Pt also reports decreased ROM. Coronavirus screen: Client denies travel out of the [place] in the last 14 days. At this time, the client does not indicate any symptoms associated with coronavirus-19. Ebola Screen: Patient denies exposure to infectious person. Patient denies travel to an Ebola-affected area in the 21 days before illness onset. Initial Sepsis Screen: Does the patient meet any 2 criteria? No. Patient's initial sepsis screen is negative. Does the patient have a suspected source of infection? No. Patient's initial sepsis screen is negative. Risk Assessment: Do you want to hurt yourself or someone else? Patient reports no desire to harm self or others. Onset of symptoms is unknown. 11:51 Method Of Arrival: Ambulatory ss 11:51 Acuity: AMEENA 3 ss Historical: - Allergies: 11:55 No Known Allergies; ss - PMHx: 11:55 Anxiety; Arthritis; Hypertension; ss - Immunization history:: Adult Immunizations up to date. - Social history:: Smoking status: Patient denies any tobacco usage or history of. Screenin:43 Abuse screen: Denies threats or abuse. Nutritional screening: No deficits noted. Tuberculosis screening: No symptoms or risk factors identified. Fall Risk None identified. Assessment: 11:55 Reassessment: Pt reports he has not taken his BP medication for over a month because he ss was concerned and heard bad reviews that it might harm his kidneys. 12:41 General: Appears in no apparent distress. Behavior is calm, cooperative, appropriate for age. Pain: Complains of pain in right elbow and palmar aspect of right forearm Pain does not radiate. Pain currently is 8 out of 10 on a pain scale. Neuro: Level of Consciousness is awake, alert, obeys commands, Oriented to person, place, time, situation, Appropriate for age. Cardiovascular: Capillary refill < 3 seconds Patient's skin is warm and dry. Respiratory: Airway is patent Respiratory effort is even, unlabored, Respiratory pattern is regular, symmetrical. Derm: Skin is intact, is healthy with good turgor, Skin is dry. Musculoskeletal: Circulation, motion, and sensation intact. Capillary refill < 3 seconds, Range of motion: limited in right elbow Swelling present in right elbow denies injury. 13:54 Reassessment: Patient and/or family updated on plan of care and expected duration. Pain ah level reassessed. Patient is alert, oriented x 3, equal unlabored respirations, skin warm/dry/pink. Pt medicated at this time. Awaiting lab results. No needs voiced. 15:30 Reassessment: Patient and/or family updated on plan of care and expected duration. Pain ah level reassessed. Patient is alert, oriented x 3, equal unlabored respirations, skin warm/dry/pink. 16:30 Reassessment: Patient and/or family updated on plan of care and expected duration. Pain ah level reassessed. Pt discharged at this time. Voiced understanding of all instructions and prescription education. Vital Signs: 11:51 BP 207 / 103; Pulse 70; Resp 16; Temp 97.5(TE); Pulse Ox 98% on R/A; Weight 83.91 kg; ss Height 5 ft. 8 in. (172.72 cm); Pain 8/10; 11:51 Body Mass Index 28.13 (83.91 kg, 172.72 cm) ED Course: 11:45 Patient arrived in ED. fj1 11:55 Triage completed. ss 11:55 Arm band placed on right wrist. ss 12:27 Mauricio Cruz NP is PHCP. pm1 12:27 Hawa Nieto MD is Attending Physician. pm1 12:35 Philly Amado, RN is Primary Nurse. 12:43 Patient has correct armband on for positive identification. Bed in low position. Call light in reach. Side rails up X 1. Pulse ox on. NIBP on. 13:31 Elbow Right 3 View XRAY In Process Unspecified. EDMS 13:52 Initial lab(s) drawn, by me, sent to lab. Inserted saline lock: 20 gauge in left antecubital area, using aseptic technique. 16:30 No provider procedures requiring assistance completed. IV discontinued, intact, bleeding controlled, No redness/swelling at site. Pressure dressing applied. Administered Medications: 13:45 Drug: Decadron - Dexamethasone 10 mg Route: IVP; Site: left antecubital; 15:37 Follow up: Response: No adverse reaction 13:45 Drug: TORadol - Ketorolac 15 mg Route: IVP; Site: left antecubital; 15:37 Follow up: Response: No adverse reaction 15:30 Drug: Colcrys 1.2 mg Route: PO; 16:30 Follow up: Response: No adverse reaction 15:30 Drug: morphine 4 mg Route: IVP; Site: left antecubital; 16:30 Follow up: Response: No adverse reaction 15:30 Drug: Zofran (Ondansetron) 4 mg Route: IVP; Site: left antecubital; 16:30 Follow up: Response: No adverse reaction 16:34 Drug: Colcrys 0.6 mg Route: PO; 16:35 Follow up: Response: Medication administered at discharge. Outcome: 16:02 Discharge ordered by . pm1 16:30 Discharged to home ambulatory. 16:30 Condition: good 16:30 Discharge instructions given to patient, Instructed on discharge instructions, follow up and referral plans. medication usage, Demonstrated understanding of instructions, follow-up care, medications, Prescriptions given X 2. 16:59 Patient left the ED. Signatures: Dispatcher [employer] EDMS Vannesa Knight RN RN Mauricio Cruz NP SPECIAL PROJECTS MANAGER pm1 Rufino Odonnell 1 Philly Amado RN CHLOE
[2019-10-14 17:19] VITALS: BP 207/103; TEMP 97.5; O2SAT 98
== END 2019-10-14 16:59 | disposition home or self-care (01) ==
LOC: ER 11:35
DX: M10.9 Gout, unspecified (principal); I10 Essential (primary) hypertension
CPT/HCPCS: 85025; 36415; 84550; 80053; 73080; 96375; 96374; 99284; J1100; J2405

== ENCOUNTER 2020-09-02 15:58 | Emergency (ER) | payer OTHER ==
--- OUTSIDE RECORDS SUMMARY | 2020-09-02 16:01 | XMS REPORT | Continuity of Care Document ---
:1950 Author Organization [facility] t Address [address] [place] [address] [address]. [address] [place] [address] Care Team Providers Name Role Phone Ruslan [...] 2019-06-29 2019-06-29 Telephone REINA Mercer [id number] 00:00:00 00:00:00 Marisol Boswell JAIR [id number] [facility] [id number] [id number] 2019-06-28 2019-06-28 Urgent Pob1, Acute [facility] [id number] 16:56:41 17:40:47 [facility] [id number] [place] [id number] [facility] [phone] [address] Results This patient has no known results.
--- NOTE | 2020-09-02 16:58 | EDPHYS ---
Physician Documentation [facility] Name: Viji Waller Age: 69 yrs Sex: Male : 1950 Arrival Date: 09/02/2020 Time: 16:04 Bed 15 Private MD: ED Physician Jv Mukherjee HPI: 09/02 16:53 This 69 yrs old Male presents to ER via Ambulatory with complaints of Arm Pain.kdr 16:53 The patient or guardian complains of decreased range of motion, pain, that is acute, kdr tenderness. The complaints affect the right elbow and palmar aspect of right forearm. Context: The problem was sustained at home, resulted from unknown cause. Onset: The symptoms/episode began/occurred gradually, 5 day(s) ago. Treatment prior to arrival includes: no previous treatment. Modifying factors: The symptoms are alleviated by remaining still, the symptoms are aggravated by movement, bending arm. Associated signs and symptoms: The patient has no apparent associated signs or symptoms. Severity of symptoms: At their worst the symptoms were moderate, incapacitating, in the emergency department the symptoms are unchanged. The patient has experienced similar episodes in the past, a few times. The patient has not recently seen a physician. Historical: - Allergies: 16:12 No Known Allergies; ca1 - PMHx: 16:12 Anxiety; Arthritis; Hypertension; ca1 - PSHx: 16:12 None; ca1 - Immunization history:: Client reports receiving the 2nd dose of the Covid vaccine, Client reports receiving the 1st dose of the Covid vaccine, Pneumococcal vaccine is up to date, Flu vaccine is not up to date. - Social history:: Smoking status: Patient reports the use of cigarette tobacco products, denies chronic smoking, but will smoke occasionally. ROS: 16:53 Constitutional: Negative for fever, chills, and weight loss, Eyes: Negative for injury, kdr pain, redness, and discharge, ENT: Negative for injury, pain, and discharge, Neck: Negative for injury, pain, and swelling, Cardiovascular: Negative for chest pain, palpitations, and edema, Respiratory: Negative for shortness of breath, cough, wheezing, and pleuritic chest pain, Abdomen/GI: Negative for abdominal pain, nausea, vomiting, diarrhea, and constipation, Back: Negative for injury and pain, : Negative for injury, bleeding, discharge, and swelling, Skin: Negative for injury, rash, and discoloration, Neuro: Negative for headache, weakness, numbness, tingling, and seizure activity. Psych: Negative for depression, anxiety, suicide ideation, homicidal ideation, and hallucinations, Allergy/Immunology: Negative for hives, rash, and allergies, Endocrine: Negative for neck swelling, polydipsia, polyuria, polyphagia, and marked weight changes, Hematologic/Lymphatic: Negative for swollen nodes, abnormal bleeding, and unusual bruising. 16:53 MS/extremity: Positive for decreased range of motion, pain, of the right elbow and palmar aspect of right forearm. Exam: 16:53 Constitutional: This is a well developed, well nourished patient who is awake, alert, kdr and in no acute distress. 16:53 Musculoskeletal/extremity: Extremities: grossly normal except: noted in the right elbow and palmar aspect of right forearm: decreased ROM, pain, tenderness. Vital Signs: 16:10 BP 150 / 99; Pulse 88; Resp 16 S; Temp 97.2(TE); Pulse Ox 98% on R/A; Weight 86.18 kg ca1 (R); Height 5 ft. 8 in. (172.72 cm) (R); Pain 9/10; 17:25 BP 142 / 87; Pulse 84; Resp 18; Temp 97.8; Pulse Ox 99% on R/A; ph 16:10 Body Mass Index 28.89 (86.18 kg, 172.72 cm) ca1 MDM: 16:53 Data reviewed: vital signs, nurses notes. Counseling: I had a detailed discussion with kdr the patient and/or guardian regarding: the historical points, exam findings, and any diagnostic results supporting the discharge/admit diagnosis, the need for outpatient follow up. 16:57 Patient medically screened. kdr 09/02 17:03 Order name: Jay wrap-joint: Right elbow; Complete Time: 17:30 kdr Administered Medications: 16:59 Drug: Pepcid (famotidine) 20 mg Route: PO; ph 17:04 Follow up: Response: No adverse reaction ph 17:02 Drug: SOLU-Medrol (methylPrednisoLONE) 125 mg Route: IVP; Site: right antecubital; ph 17:15 Follow up: Response: No adverse reaction ph 17:02 Drug: Louisa (HYDROcodone-acetaminophen) 10 mg-325 mg 1 tabs Route: PO; ph 18:27 Follow up: Response: No adverse reaction ph 17:02 Drug: Ketorolac 15 mg Route: IVP; Site: right antecubital; ph 17:04 Follow up: Response: No adverse reaction ph Disposition: 09/02/20 16:57 Discharged to Home. Impression: Olecranon bursitis, right elbow, Tendonitis right elbow. - Condition is Stable. - Discharge Instructions: Elbow Bursitis, [id number]. - Prescriptions for ketorolac 10 mg Oral tablet - take 1 tablet by ORAL route every 4-6 hours As needed not to exceed 40 mg in 24hrs; 12 tablet. Pepcid 20 mg Oral Tablet - take 1 tablet by ORAL route every 12 hours for 5 days; 10 tablet. Tylenol- Codeine #3 300-30 mg Oral Tablet - take 2 tablets by ORAL route every 4-6 hours As needed; 12 tablet. Medrol (Braden) 4 mg Oral Tablets, Dose Pack - take 1 tablet by ORAL route as directed - follow package instructions; 1 packet. - Medication Reconciliation Form, Thank You Letter form. - Follow up: Private Physician; When: 2 - 3 days; Reason: If symptoms return, Further diagnostic work-up, Recheck today's complaints, Continuance of care, Re-evaluation by your physician. Follow up: Jermain Bonner MD; When: 2 - 3 days; Reason: If symptoms return, Further diagnostic work-up, Recheck today's complaints, Continuance of care, Re-evaluation by your physician. - Problem is an acute exacerbation. - Symptoms have improved. Signatures: Jv Mukherjee MD MD [facility] Kimberlee Oswald RN RN Acob, CHLOE Baumann RN ca1 Corrections: (The following items were deleted from the chart) 17:30 16:57 09/02/2020 16:57 Discharged to Home. Impression: Olecranon bursitis, right elbow; ph Tendonitis right elbow. Condition is Stable. Forms are Medication Reconciliation Form, Thank You Letter, Antibiotic Education, Prescription Opioid Use. Follow up: Private Physician; When: 2 - 3 days; Reason: If symptoms return, Further diagnostic work-up, Recheck today's complaints, Continuance of care, Re-evaluation by your physician. Follow up: Jermain Bonner; When: 2 - 3 days; Reason: If symptoms return, Further diagnostic work-up, Recheck today's complaints, Continuance of care, Re-evaluation by your physician. Problem is an acute exacerbation. Symptoms have improved. kdr
--- NOTE | 2020-09-02 16:58 | ER ---
Nurse's Notes [facility] Name: Viji Waller Age: 69 yrs Sex: Male : 1950 Arrival Date: 09/02/2020 Time: 16:04 Bed 15 Private MD: Diagnosis: Olecranon bursitis, right elbow;Tendonitis right elbow Presentation: 09/02 16:10 Chief complaint: Patient states: R arm pain and swelling x 5 days. Denies injury. Took ca1 colchicine, allopurinol, ibuprofen, no relief. Had the same happen last year was said to be arthritis was given a shot of steroid. Coronavirus screen: Client denies travel out of the [place] in the last 14 days. At this time, the client does not indicate any symptoms associated with coronavirus-19. Ebola Screen: Patient negative for fever greater than or equal to 101.5 degrees Fahrenheit, and additional compatible Ebola Virus Disease symptoms Patient denies exposure to infectious person. Patient denies travel to an Ebola-affected area in the 21 days before illness onset. No symptoms or risks identified at this time. Initial Sepsis Screen: Does the patient meet any 2 criteria? No. Patient's initial sepsis screen is negative. Does the patient have a suspected source of infection? No. Patient's initial sepsis screen is negative. Risk Assessment: Do you want to hurt yourself or someone else? Patient reports no desire to harm self or others. Onset of symptoms was September 02, 2020. 16:10 Method Of Arrival: Ambulatory ca1 16:10 Acuity: AMEENA 4 ca1 Historical: - Allergies: 16:12 No Known Allergies; ca1 - PMHx: 16:12 Anxiety; Arthritis; Hypertension; ca1 - PSHx: 16:12 None; ca1 - Immunization history:: Client reports receiving the 2nd dose of the Covid vaccine, Client reports receiving the 1st dose of the Covid vaccine, Pneumococcal vaccine is up to date, Flu vaccine is not up to date. - Social history:: Smoking status: Patient reports the use of cigarette tobacco products, denies chronic smoking, but will smoke occasionally. Screenin:18 Abuse screen: Denies threats or abuse. Denies injuries from another. Nutritional ph screening: No deficits noted. Tuberculosis screening: No symptoms or risk factors identified. Fall Risk None identified. Assessment: 16:45 General: Appears in no apparent distress. uncomfortable, well groomed, Behavior is ph calm, cooperative, appropriate for age. Pain: Complains of pain in palmar aspect of right forearm and right elbow. Neuro: Level of Consciousness is awake, alert, obeys commands, Oriented to person, place, time, situation. Cardiovascular: Capillary refill < 3 seconds in bilateral fingers Patient's skin is warm and dry. Respiratory: Airway is patent Respiratory effort is even, unlabored. GI: No signs and/or symptoms were reported involving the gastrointestinal system. Derm: Skin is intact, is healthy with good turgor, Skin is pink, warm \T\ dry. Musculoskeletal: Circulation, motion, and sensation intact. Range of motion: intact in all extremities, Swelling present in right elbow. Vital Signs: 16:10 BP 150 / 99; Pulse 88; Resp 16 S; Temp 97.2(TE); Pulse Ox 98% on R/A; Weight 86.18 kg ca1 (R); Height 5 ft. 8 in. (172.72 cm) (R); Pain 9/10; 17:25 BP 142 / 87; Pulse 84; Resp 18; Temp 97.8; Pulse Ox 99% on R/A; ph 16:10 Body Mass Index 28.89 (86.18 kg, 172.72 cm) ca1 ED Course: 16:04 Patient arrived in ED. mr 16:07 Jv Mukherjee MD is Attending Physician. kdr 16:12 Triage completed. ca1 16:12 Arm band placed on right wrist. ca1 16:15 Kimberlee Oswald, RN is Primary Nurse. ph 16:18 Patient has correct armband on for positive identification. Bed in low position. Call ph light in reach. Pulse ox on. NIBP on. Door closed. Noise minimized. 16:56 Jermain Bonner MD is Referral Physician. kdr 17:25 No provider procedures requiring assistance completed. Patient did not have IV access ph during this emergency room visit. Jay wrap to right elbow. Administered Medications: 16:59 Drug: Pepcid (famotidine) 20 mg Route: PO; ph 17:04 Follow up: Response: No adverse reaction ph 17:02 Drug: SOLU-Medrol (methylPrednisoLONE) 125 mg Route: IVP; Site: right antecubital; ph 17:15 Follow up: Response: No adverse reaction ph 17:02 Drug: [place] (HYDROcodone-acetaminophen) 10 mg-325 mg 1 tabs Route: PO; ph 18:27 Follow up: Response: No adverse reaction ph 17:02 Drug: Ketorolac 15 mg Route: IVP; Site: right antecubital; ph 17:04 Follow up: Response: No adverse reaction ph Outcome: 16:57 Discharge ordered by . kdr 17:30 Patient left the ED. ph 17:30 Discharged to home ambulatory, with significant other. ph 17:30 Condition: good 17:30 Discharge instructions given to patient, Instructed on discharge instructions, follow up and referral plans. medication usage, Demonstrated understanding of instructions, follow-up care, medications, Prescriptions given X 4. Signatures: Jv Mukherjee MD MD kdr Rivera, Mary mr Hall, Patricia RN RN ph Achaydee, CHLOE Baumann RN ca1 Corrections: (The following items were deleted from the chart) 16:13 16:10 Chief complaint: Patient states: R arm pain and swelling x 5 days. Denies injury. ca1 Had the same happen last year was said to be arthritis was given a shot of steroid. ca1
[2020-09-02] MEDS ORDERED: HYDROCODONE/APAP 10/325 TAB ONE (17:07)
[2020-09-02] MEDS ORDERED: METHYLPREDNISOLONE 125 MG INJ ONE (17:07)
[2020-09-02] MEDS ORDERED: FAMOTIDINE 20 MG TAB ONE (17:08)
[2020-09-02] MEDS ORDERED: KETOROLAC 30 MG/ML INJ ONE (17:08)
[2020-09-02 17:36] VITALS: BP 150/99; TEMP 97.2; O2SAT 98
== END 2020-09-02 17:30 | disposition home or self-care (01) ==
LOC: ER 15:58
DX: M70.21 Olecranon bursitis, right elbow (principal); M67.823 Other specified disorders of tendon, right elbow; I10 Essential (primary) hypertension; F17.210 Nicotine dependence, cigarettes, uncomplicated
CPT/HCPCS: 96374; 96375; 99284; J2930

== ENCOUNTER 2023-06-15 12:10 | Inpatient (IN) | payer MEDICARE ==
--- OUTSIDE RECORDS SUMMARY | 2023-06-15 12:25 | XMS REPORT | Continuity of Care Document ---
Author Name Unknown Address [address] [facility] [facility] Address [address] [facility] [place] [address] Care Team Providers Care Dial Brusher Name Role Phone Pcp, Patient Does Not Have A Primary Care Physic kal Sam Connors Attending Clinician Unavailable YAW PAEZ Attending Clinician Unavailable Teri Loyd RN Attending Clinician Unavailable Pob1, Acute Care Clinic Attending Clinician Unav Irma Garcia Attending Clinician [phone] Bar_Mary Attending Clinician Unavailable HERVE VÁSQUEZ Attending Clinician Unavailable BRADFORD MENDEZ Attending Clinician Unavail able CHAVEZ OLVERA Attending Clinician UnavailDELORIS Oshea Attending Clinician UnavailMarisol Schaefer RN Attending Clinician Unavail able Ana Munson MD Attending Clinician ANA MUNSON Attending Clinician Janette sarath Lizarraga_Damian Attending Clinician Unavailable Kallie-Mbayo_A_AH Attending Clinician Unavailable Bar_Mary Admitting Clinician Unavailable Raju_P Admitting Clinician Unavailable Kallie-Mbayo_A_AH Admitting Clinician Unavailable Payers Payer Name Policy Type Policy Number Effective Date Expirati on Date Source [employer] [facility] [id number] 00:00:00 FORMERLY [facility], 1928–1983 (MEDICARE REPLACEMENT HMO) [id number] 2021 00:00:00 Problems Condition Name Condition Details Condition Category Status Onset Date Resolution Date Last Treatment Date Treating Clinician Comments Source Hypertensi ve urgency Hypertensi ve urgency Disease Active 06-27 00:00: 00 [facility] SOB (shortness of breath) SOB (shortness of breath) Disease Active 06-27 00:00: 00 [facility] Diarrhea, unspecifie d type Diarrhea, unspecifie d type Disease Active 06-27 00:00: 00 [facility] Osteoarthr itis Osteoarthr itis Disease Active 2011-03 00:00: 00 [facility] Chronic otitis media of both ears Chronic otitis media of both ears Disease Active 2011-03 00:00: 00 [facility] Rhinosinus itis Rhinosinus itis Disease Active 2011-03 00:00: 00 [facility] Essential hypertensi on, benign Essential hypertensi on, benign Disease Active 2011-03 00:00: 00 [facility] Chronic low back pain Chronic low back pain Disease Active 2011-03 00:00: 00 [facility] Anxiety Anxiety Disease Active 2011-03 00:00: 00 [facility] Hyperlipid emia Hyperlipid emia Disease Active 2011-03 00:00: 00 [facility] Rhinosinus itis Rhinosinus itis Disease Active 2011-03 00:00: 00 [facility] Allergies, Adverse Reactions, Alerts Allergy Name Allergy Type Status Severity Reaction(s) Onset Date Inactive Date Treating Clinician Comments Source NO KNOWN ALLERGIE S Drug Class Active [facility] Social History Social Habit Start Date Stop Date Quantity Comments Source [facility] of Social function 2018-12-03 00:00:00 2018-12-03 00:00:00 [facility] Alcohol intake 2018-09-25 00:00:00 2018-09-25 00:00:00 Current non-drinker of alcohol (finding) [facility] Tobacco use and exposure 2011-12-23 00:00:00 2011-12-23 00:00:00 Smokeless tobacco non-user [facility] Sex Assigned At 1950 00:00:00 1950 00:00:00 [facility] Smoking Status Start Date Stop Date Source Never smoked tobacco [facility] Medications Ordered Medication Name Filled Medication Name Start Date Stop Date Current Medication? Ordering Clinician Indication Dosage Frequency Signature (SIG) Comments Components Source cloNIDine (CATAPRES) tablet 0.2 mg 06-27 23:15: 00 06-27 22:15 :00 No [id number] .2mg [facility] losartan-hy drochloroth iazide 50-12.5 mg per tablet 06-27 00:00: 00 Yes [id number] 1{tbl} Take 1 tablet by mouth daily. [facility] amLODIPine 10 mg tablet 06-27 00:00: 00 Yes [id number] 10mg Take 1 tablet by mouth daily. [facility] Bismuth Subsalicyla te (PEPTO-BISM OL) 262 mg tablet 06-27 00:00: 00 Yes [id number] 262mg Take 1 tablet by mouth 4 (four) times daily as needed (Diarrhea) . [facility] LORazepam (ATIVAN) 1 mg tablet 09-25 00:00: 00 Yes [id number] 1mg Take 1 tablet by mouth 3 (three) times daily as needed for Anxiety or Agitation. [facility] traMADOL (ULTRAM) 50 mg tablet 04-29 00:00: 00 Yes 50mg Take 1 Tab by mouth every 6 (six) hours as needed for Pain (scale 7-10). [facility] sulfamethox azole-trime thoprim (BACTRIM DS) 800-160 mg per tablet 04-29 00:00: 00 06-27 00:00 :00 No 1{tbl} Take 1 Tab by mouth every 12 (twelve) hours. [facility] IBUPROFEN ORAL 2011-03 18:48: 28 Yes Take by mouth. [facility] IBUPROFEN ORAL 2011-03 12:48: 28 Yes Take by mouth. [facility] fluticasone (FLONASE) 50 mcg/actuati on nasal spray 2011-03 00:00: 00 Yes [id number] 2{spray } Use 2 Sprays in each nostril daily. [facility] naproxen (NAPROSYN) 500 mg tablet 2011-03 00:00: 00 Yes 500mg Take 1 Tab by mouth 2 (two) times daily with meals. [facility] traMADOL (ULTRAM) 50 mg tablet 2011-03 00:00: 00 Yes 50mg Take 1 Tab by mouth every 6 (six) hours as needed for Pain. [facility] hydrochloro thiazide (ESIDRIX) 25 mg tablet 2011-03 00:00: 00 06-27 00:00 :00 No [id number] 25mg Take 1 Tab by mouth daily. [facility] LORazepam (ATIVAN) 1 mg tablet 2011-03 00:00: 00 Yes 1mg Take 1 Tab by mouth every 8 (eight) hours. [facility] esomeprazol e (NEXIUM) 20 mg capsule 2011-03 00:00: 00 Yes [id number] 20mg Take 20 mg by mouth daily before a meal. [facility] cetirizine (ZYRTEC) 10 mg tablet 2011-03 00:00: 00 Yes [id number] 10mg Take 1 Tab by mouth daily. [facility] Immunizations Ordered Immunization Name Filled Immunization Name Date Status Comments Source Influenza Virus Vaccine 2011-12-28 00:00:00 Completed [facility] Influenza Virus Vaccine 2011-12-28 00:00:00 Completed [facility] Influenza Virus Vaccine Unknown Completed [facility] Influenza Virus Vaccine Unknown Completed [facility] Vital Signs Vital Name Observation Time Observation Value Comments S silvia Systolic blood pressure 2019-06-28 22:14:00 167 mm[Hg] [facility] Diastolic blood pressure 2019-06-28 22:14:00 101 mm[Hg] [facility] Heart rate 2019-06-28 22:03:00 77 /min [facility] Body temperature 2019-06-28 22:03:00 37.11 Lisa [facility] Respiratory rate 2019-06-28 22:03:00 20 /min [facility] Body height 2019-06-28 22:03:00 175.3 cm [facility] Body weight 2019-06-28 22:03:00 86.183 kg [facility] BMI 2019-06-28 22:03:00 28.06 kg/m2 [facility] Oxygen saturation in Arterial blood by Pulse oximetry 2019-06-28 22:03:00 98 /min [facility] Systolic blood pressure 2019-06-28 22:14:00 167 mm[Hg] [facility] Diastolic blood pressure 2019-06-28 22:14:00 101 mm[Hg] [facility] Heart rate 2019-06-28 22:03:00 77 /min [facility] Body temperature 2019-06-28 22:03:00 37.11 Lisa [facility] Respiratory rate 2019-06-28 22:03:00 20 /min [facility] Body height 2019-06-28 22:03:00 175.3 cm [facility] Body weight 2019-06-28 22:03:00 86.183 kg [facility] BMI 2019-06-28 22:03:00 28.06 kg/m2 [facility] Oxygen saturation in Arterial blood by Pulse oximetry 2019-06-28 22:03:00 98 /min [facility] Procedures Procedure Date / Time Performed Performing Clinician Source CORONAVIRUS COVID-19 TESTING 2019-06-28 21:59:00 Ana Munson [facility] Encounters Start Date/Time End Date/Time Encounter Type Admission Type Attending Clinicians Care Facility Care Department Encounter ID Source 2021-04-08 13:51:49 Outpatient Sam Connors [facility] [id number] [facility] 2023-07-08 08:00:00 2023-07-08 08:00:00 Outpatient YAW PAEZ [facility] [id number] [facility] 2023-01-20 00:00:00 2023-01-20 00:00:00 Nurse Triage Evert Teri [facility] [id number] [id number] [facility] 2023-01-20 00:00:00 2023-01-20 00:00:00 Telephone Pob1, Acute Care Clinic [facility] [id number] [id number] [id number] [facility] 2022-12-16 19:00:00 2022-12-16 20:00:00 D2Me Irma Dinero [id number] [facility] 2022-09-02 14:29:49 2022-09-02 14:29:49 Outpatient SFA SFA [id number] Noah Morales Ilan 2022-08-24 00:00:00 2022-08-24 00:00:00 Outpatient Thomas_T DMG DMG [id number] [facility] 2022-08-24 00:00:00 2022-08-24 00:00:00 Outpatient Thomas_T DMG DMG [id number] [facility] 2022-02-02 00:00:00 2022-02-02 00:00:00 Outpatient Thomas_T DMG DMG [id number] [facility] 2022-02-02 00:00:00 2022-02-02 00:00:00 Outpatient Thomas_T DMG DMG [id number] [facility] 2021-09-25 07:03:00 2021-09-25 07:03:00 Outpatient Thomas_T DMG DMG [id number] [facility] 2021-07-10 20:00:00 2021-07-10 21:00:00 BRENDA Dinero [id number] [facility] 2021-07-06 06:45:00 2021-07-06 06:45:00 Outpatient Thomas_T DMG [facility] [id number] [facility] 2021-07-03 04:30:00 2021-07-03 04:30:00 Outpatient Thomas_T DMG [facility] 2021-04-02 12:01:00 2021-04-02 12:01:00 Outpatient DMG [facility] [id number] [facility] 2021-03-09 13:30:00 2021-03-09 13:30:00 Outpatient HERVE COLIN [facility] [id number] [facility] 2020-12-11 13:20:00 2020-12-11 13:20:00 Outpatient BRADFORD AQUINO [facility] [id number] [facility] 2020-03-12 14:00:00 2020-03-12 14:00:00 Outpatient CHAVEZ RAIN [facility] [id number] [facility] 2019-08-13 14:30:00 2019-08-13 14:30:00 Outpatient DELORIS ESTEBAN [facility] [id number] [facility] 2019-06-29 00:00:00 2019-06-29 00:00:00 [facility] [id number] [id number] [id number] [id number] 2019-06-29 00:00:00 2019-06-29 00:00:00 [facility] [id number] 350.1.13.10 [id number] [id number] [facility] 2019-06-28 16:56:41 2019-06-28 17:40:47 Urgent Care Pob1, Acute Care Clinic [facility] 1..840.114 350.1.13.10 [id number] [id number] 2019-06-28 16:56:41 2019-06-28 17:40:47 Urgent Care Pob1, Acute Care Clinic Ana Munson [facility] 1..840.114 350.1.13.10 [id number] [id number] [facility] 2019-06-28 16:40:00 2019-06-28 16:40:00 Outpatient ANA DAMON [facility] [id number] [facility] 2019-06-07 04:44:00 2019-06-07 04:44:00 Outpatient Raju_P MMG MMG [id number] [facility] 2019-05-10 05:28:00 2019-05-10 05:28:00 Outpatient Kallie-Mbayo _A_AH VFP VFP [id number] [facility] 2012-03-13 00:00:00 2012-03-13 13:12:37 Outpatient [facility] [id number] [facility] 2012-03-01 00:00:00 2012-03-01 16:02:05 Outpatient [facility] [id number] [facility] 2012-02-15 00:00:00 2012-02-15 17:15:59 Outpatient [facility] [id number] [facility] 2011-12-28 00:00:00 2011-12-28 14:30:30 Outpatient [facility] [id number] [facility] 2011-12-21 00:00:00 2011-12-21 16:54:00 Outpatient [facility] [id number] [facility] Results Test Description Test Time Test Comments Results Result Co mments Source [facility]
[2023-06-15 15:23] VITALS: BMI 28.0
[2023-06-15] MEDS: PANTOPRAZOLE 40MG TABLET PO SCH (17:03)
[2023-06-15] MEDS ORDERED: APIXABAN 2.5 MG TABLET PO SCH (20:00)
[2023-06-15] MEDS: MELATONIN 3 MG TABLET PO SCH (20:41)
[2023-06-15] MEDS: CEFDINIR 300 MG CAP PO SCH (20:41)
--- NOTE | 2023-06-16 03:12 | HP ---
Date of Admission: 06/15/2023 Time Of Service: 3 p.m. Chief Complaint: It was difficult to assess as the patient has significant aphasia and was unable to get meaningful communication out. He is in with significant weakness after stroke of the left side of his body. History Of Present Illness: Mr. Waller is a 72-year-old patient with hypertension, coronary artery disease, who came to [facility] due to left-sided weakness and had code stroke called. The patient was last known well around 12 a.m. on the day of admission and he was seen at 4:30 a.m., dorothy e he was outside of the window for intravenous thrombolysis. He was nonverbal due to aphasia and sig nificant weakness on the left side. In the emergency room, medical services found the patient hypert ensive to systolics up to 210. His blood sugar is 105. He had significant weakness noted in the rig ht upper and lower extremity where he is unable to move the upper extremity and lower extremity. In addition, significant inability to communicate in a meaningful way. His NIH Stroke Scale was 21. Nh s CT angiogram of the head revealed a left MCA stroke and it was involving the M1 segment and M2 segm ent which were occluded. Blood pressures were still elevated despite labetalol and Cardene drip to a round systolic 190. Again, as he was not eligible for intravenous TNK, he was taken for thrombectomy on 06/08/2023. He did receive the thrombectomy as noted and began to have some slight movement in t he left upper and the right upper extremity. A repeat CT angiogram on 06/08 still showed partial occ lusion of left SHIRT BANDER with thrombus. He was then started on dual antiplatelet therapy, which is recomme nded to continue for at least 90 days. Transthoracic echocardiogram showed ejection fraction of 55% to 60%. There was no concentric hypertrophy. His brain MRI subsequently showed multiple early subac ant ischemic infarcts in the left SHIRT BANDER and left MCA territory. His lipid panel was good with LDL 77 a nd his glucose did range from up to 180 actually. Blood pressures systolic did improve to 140s to 16 0s. Due to the dehydration with tachycardia, he received 1 L bolus normal saline. He did have an EG D and GI evaluation. He was found to have a serpiginous ulcer in the esophagus which were biopsied. Also found to have duodenitis, hiatal hernia. Those were preceded by him having black tarry stools and the studies eventually identified those abnormalities. He was medically cleared to begin [facility] inpatient rehabilitation and to begin to return towards his prior level of functioning. He was i ndependent and doing great yard work in terms of time. Following his stroke, he requires maximal ass ist for toileting, dressing, bed mobilization, and transfers. He is unable to tolerate weightbearing due to his stroke with no movement due to the significant hemiparesis on the right side. Furthermor e, he has a global aphasia with both expression and comprehension impacted significantly. As a resul t, he is functioning well below his baseline level and will require intensive therapy to begin to rec over, which will be physical, occupational, and speech therapy and will have correction 04/10 and physician evaluation on a daily basis along with social services specialist evaluation and management for disch arge planning and durable medical equipment needs. This aggressive therapy will help to minimize his chance of returning to the hospital after discharge. Past Medical History: Include as noted, coronary artery disease, hypertension, and dyslipidemia. Allergies: NO KNOWN DRUG ALLERGIES. Medications: Aspirin 81 mg daily, cefdinir 300 mg twice daily, Prinivil 10 mg daily, melatonin 3 mg at bedtime, Protonix 40 mg twice daily, thiamine 100 mg daily. X-ray/imaging: Head CT scan did show infarct in the left inferior frontal gyrus on 06/08/2023. His brain and neck stroke perfusion study showed a near complete occlusion of the left M1 branch, decreas ed opacifications of the distal MCA segments as well. Perfusion abnormalities were identified throug hout the left MCA territory with large area of penumbra involved. There is a mismatch volume of 157 cc and that is greater than 50% stenosis in the origin of the left internal carotid artery. He had a n EGD that showed serpiginous ulcers in the esophagus with stigmata of recent bleeding and has a biop sy. He had duodenitis and involving 3 to 4 cm of the duodenum and a 4 cm hiatal hernia. The hernia was Hill grade III on 06/12/2023. Brain MRI was limited due to motion artifact. However, the study did show interval evolution of early subacute ischemic infarcts in the left SHIRT BANDER and left MCA territor ies. There was no midline shifting. Laboratory Studies: White blood cell count 6.9, hemoglobin 12.5, hematocrit 36.7, platelets 127. So dium 142, potassium 3.5, glucose 177, BUN 20, creatinine 0.69, calcium 8.5. Family History: Noncontributory. Social History: No recent alcohol, tobacco, or IV drug use. The patient has had alcohol in the past . Physical Examination: Vital Signs: Blood pressure 136/69, pulse of 74, respiratory rate 16, temperature 97.2, O2 saturatio n 99%, weight 190 pounds, height 5 feet 9 inches, BMI 28.1. General: Mr. Waller is resting comfortably. He appears to be in no acute distress. HEENT: He appears normocephalic, atraumatic. Sclerae anicteric. Oropharynx pink, moist. Neck: Supple. Chest: Clear. Heart: Regular. Extremities: No significant clubbing, cyanosis, or edema. Neurological: He has dense paresis and the right upper and lower extremity has significant expressiv e and receptive aphasia. Mild decrease in nasolabial fold in the right side. Decreased sensation in the right upper and lower extremity compared to left side. Increased tone in the right upper and lo wer extremity compared to the left side. Current Level Of Functioning: For eating, moderate assistance. Oral hygiene, moderate assistance. Toileting, maximum assistance. Bathing, maximal assistance. Upper body dressing, maximal assistance . Lower body dressing, maximal assistance. Donning and doffing of footwear, maximal assistance. Ro lling from [id number] and [id number], maximal assistance. He is dependent for [id number] and for transferring from bed to chair and from transferring to the toilet. At this point, unable to am bulate. Rehabilitation And Medical Assessment And Plan: Mr. Waller is a 72-year-old patient in the rehabili tation unit with impairment category 01, stroke. His impairment group code is 01.2, right body invol vement, left brain. His etiologic diagnosis is ischemic left MCA stroke. His comorbidities are apha vasquez, expressive and receptive, and essentially global. He has decreased physical functioning, decrea sed mobility, dysphagia, hypertension, hyperglycemia, tachycardia versus left MCA stroke with hemipar esis in the right dominant side esophagitis, esophageal ulcers. Plan: 1.He will have physical, occupational, and speech therapy for 3.5 hours, 5 of 7 days. 2.Aspirin 81 mg daily for stroke risk reduction. 3.Cefdinir for aspiration pneumonia treatment and UTI potential treatment, also Prinivil 10 mg daily for hypertension, melatonin 3 mg at night for insomnia, Protonix 40 mg daily for GE reflux, and thia mine to prevent any potential alcohol withdrawal. Note, he will have SCDs as well for DVT prophylaxi s. Comorbidities That Are Impacting His Rehabilitation: As noted, he is right handed and his dominant s ryan is most impacted. He does have to work with the left side in terms of upper extremity for perfor yang his ADLs and mobilization. Likely if he is able to stand and ambulate, use a left hand quad can e. In addition, there is a high risk of GI bleed and therefore he will have the SCDs for DVT prophyl axis along with aspirin for stroke risk reduction. The family will likely require some help and he m ay be depending on how well he does have to go to correction as he may not be able to function h ighly enough to be at home and to be left alone. Rehab Specific Plan: Mr. Waller will have physical, occupational, and speech therapy for 3.5 hours, 5 of 7 days to improve his ability to transfer from bed to chair to toilet and to shower and to perf orm those activities likely with perhaps minimum assistance, to ambulate household distances using a left quad cane and potentially minimum assistance to propel a wheelchair 250 feet with min assist and potentially to go up and down 5 steps using left hand rail. He will have 24 hours a day, 7 days a week correction and daily physician evaluation and social service evaluation and management for discharge planning. Mr. Waller and family have a good understanding of the process of admission to the inpatient rehabil itation facility and how he will benefit from physical, occupational, and speech therapy. Again if n eed be, additional help from the Cardiology Service, Pulmonary Service, and Infectious Disease Servic e may be consulted. Given his complex medical condition and risk of further complications, rehabilit ation cannot be safely or effectively performed at the lower level of facility such as skilled nursin g. Barriers To Discharge: As noted, his dominant side is significantly impacted, making it difficult fo r him to do ordinary activities and he may require a longer length of stay and therefore may have to go to correction depending on how he does. He has of course high risk of aspiration pneumonia a nd aspiration precautions at all times. He has significant risk of falling. A gait belt will be use d at all times along with potentially a platform walker or quad cane. Length Of Stay: Perhaps 21 days. Disposition: Planned to be at home with 24 hours supervision and continue with therapy at home. Prognosis: Fair. Rehabilitation Goals: 1.With perhaps minimum assistance to be able to perform dressing upper and lower body and donning an d doffing of footwear in addition to some of his toileting and showering. 2.To be able to ambulate with a quad cane on the right side with min assist around household distanc es. 3.To be able to mobilize a wheelchair household distances with minimum assistance. 4.Potentially go up and down 5 steps with left handrail. 5.To perform some of his cognitive functioning with supervision as he has significant expressive and receptive aphasia which is really global. The above goals were reviewed with Mr. Waller and family and they are in agreement. By signing this document, I acknowledge I personally performed a full physical examination of Mr. Inocente story, no later than 24 hours after his admission to the inpatient rehabilitation facility and determi michele that he is able to tolerate the above course of treatment at an intensive level for a reasonable period of time. A detailed individualized plan of care for him will be completed by hospital day 4 b aseedith on the preadmission screen, history and physical, and therapy evaluations. DYAN Voice ID: [id number]
[2023-06-16] MEDS: ASPIRIN EC 81 MG TAB PO SCH (06:49)
[2023-06-16] MEDS: lisinopriL 10 MG TAB PO SCH (06:49)
[2023-06-16] MEDS: THIAMINE HCL 100 MG TABLET PO SCH (06:49)
[2023-06-16 08:17] LABS: Absolute Lymphocytes (CBC) 0.7 K/uL (0.7-4.9); Absolute Monocytes 0.4 K/uL (0.1-1.3); Absolute Neutrophil 4.9 K/uL (1.8-8.0); Basophils % 0.5 % (0-1.3); Eosinophils % 0.7 % (0-4.4); Hematocrit 37.2 % (39.6-49.0); Hemoglobin 12.8 g/dL (13.6-17.9); Lymphocytes % 11.2 % (15.3-44.8); MCH 33.1 pg (27.0-35.0); MCHC 34.4 g/dL (32.0-36.0); MCV 96.3 fL (80-100); MPV 7.6 fL (7.6-11.3); Monocytes % 6.7 % (3.3-12.3); Neutrophils % 80.9 % (41.7-73.7); Platelets 218 thou/uL (152-406); RBC Red Blood Cell Count 3.86 M/uL (4.33-5.43); Red Cell Distribution Width 13.6 % (12.1-15.2)
[2023-06-16 08:41] LABS: Anion Gap 8.1 mEq/L (5.0-15.0); Magnesium 2.3 mg/dL (1.6-2.4); Potassium 4.1 mEq/L (3.5-5.1); Prealbumin 12.8 mg/dL (20-40)
[2023-06-16] MEDS ORDERED: LIDOCAINE 4% PATCH ONE ×2 (12:21→12:26)
[2023-06-16] MEDS: ACETAMINOPHEN 500 MG TAB PO PRN (12:30)
[2023-06-16] MEDS: LIDOCAINE 4% PATCH TOP SCH (12:32)
--- NOTE | 2023-06-16 19:05 | P.PN ---
Subjective Date of Service: 06/16/23 Patient was able to speak but with low volume today and mentioned he feels his speech is better. He has been tolerating his diet. Physical Examination - Vital Signs Temperature: 96.9 F Blood Pressure: 151/71 Pulse: 95 Respirations: 19 Pulse Ox (%): 96 - Studies Laboratory Data (last 24 hrs) 06/16/23 06/16/23 07:53 07:53 WBC 6.10 Hgb 12.8 L Hct 37.2 L Plt Count 218 Sodium 140 Potassium 4.1 BUN 19 H Creatinine 0.86 Glucose 107 H Magnesium 2.3 Assessment And Plan - Plan Physical examination General: Alert and oriented x3, NAD, HEENT: Conjunctiva not pale, anicteric sclera Neck: Supple, no elevated JVD Heart: Heart sounds 1 and 2 normal, regular rhythm, normal rate, no pedal edema Lungs: Clear to auscultation bilaterally, adequate breath sounds bilaterally, no rhonchi or crackles. Abdomen: Soft, nondistended, nontender, normal bowel sounds. Extremities: No tenderness, no deformity Skin: Normal skin turgor, no rash, no nodules or ulcers. Neuro: Right-sided weakness, aphasia is improving. Psychiatry: Normal mood, no agitation. Progress Made With Physical And Occupational Therapy: Patient was able to complete bed mobility including turning and supine<>sit with Max A, sitting at EOB with Max A, patient completed stand pivot transfers with Max A x 2, He was unable to sit unsupported. Patient completed scooting back in bed/wheelchair with Max A x 2. Patient completed wheelchair mobility for 65' and 50' with Max A and had difficulty with coordination to manage wc mobility. Assessment and plan Mr. Waller is a 72-year-old patient in the rehabilitation with stroke with right hemiparesis. His etiologic diagnosis is ischemic left MCA stroke. His comorbidities are aphasia, expressive and receptive, and essentially global. He has significant decreased physical functioning, with decreased mobility, dysphagia, hypertension, hyperglycemia. He also has esophagitis and esophageal ulcers. Plan: Continue physical, occupational, and speech therapy for 3.5 hours, 5 of 7 days. Continue aspirin 81 mg daily for stroke risk reduction. He is on cefdinir for aspiration pneumonia treatment and UTI potential treatment, Continue home medications for hypertension Continue Protonix 40 mg daily for GE reflux, esophagitis and esophageal ulcer. SCDs for DVT prophylaxis. Comorbidities That Are Impacting His Rehabilitation: As noted, he is right handed and his dominant side is most impacted. He has issues with coordination between the upper extremities. He does have to work with the left side in terms of upper extremity for performing his ADLs and mobilization. High risk of GI bleed and therefore he will have the SCDs for DVT prophylaxis along with aspirin for stroke risk reduction. He does have to go to [facility] as he may not be able to function highly enough to be at home and to be left alone.
[2023-06-16] MEDS: ENSURE ENLIVE 237 ML CAN PO SCH (20:26)
[2023-06-16] MEDS: HYDROCODONE/APAP 5/325 MG TAB PO PRN (20:26)
--- NOTE | 2023-06-17 14:37 | RAD REPORT ---
EXAM DESCRIPTION: RAD - Shoulder Right 2 View - 06/17/2023 2:29 pm CLINICAL HISTORY: pain COMPARISON: No comparisons FINDINGS/IMPRESSION: No acute fracture. No malalignment. Mild right AC joint degenerative changes. M ild right glenohumeral joint degenerative changes.
[2023-06-17] MEDS: NA CHLORIDE 0.9% 500 ML IV ONE (15:41)
--- NOTE | 2023-06-17 16:20 | RAD REPORT ---
EXAM DESCRIPTION: RAD - Knee Right 2 View - 06/17/2023 2:29 pm CLINICAL HISTORY: pain COMPARISON: No comparisons FINDINGS/IMPRESSION: No acute fracture. No malalignment. No significant focal degenerative changes. Small nonspecific knee effusion.
--- NOTE | 2023-06-17 18:31 | P.PN ---
Subjective Date of Service: 06/17/23 Patient was complaining of right shoulder pain and right knee pain. Of note he has right-sided weakness. Patient also noted to have borderline low BP. Physical Examination - Vital Signs Temperature: 97.6 F Blood Pressure: 119/66 Pulse: 100 Respirations: 18 Pulse Ox (%): 93 Assessment And Plan - Plan Physical examination General: Alert and oriented x3, NAD, HEENT: Conjunctiva not pale, anicteric sclera Neck: Supple, no elevated JVD Heart: Heart sounds 1 and 2 normal, regular rhythm, normal rate, no pedal edema Lungs: Clear to auscultation bilaterally, adequate breath sounds bilaterally, no rhonchi or crackles. Abdomen: Soft, nondistended, nontender, normal bowel sounds. Extremities: No tenderness, no deformity Skin: Normal skin turgor, no rash, no nodules or ulcers. Neuro: Right-sided weakness, aphasia is improving. Psychiatry: Normal mood, no agitation. Progress Made With Physical And Occupational Therapy: Patient completed bed mobility with Max A, completed multiple stand pivot transfers with Max A. Patient needed Max A x 2 for multiple sit<>stand transfers. PT used a Breanna Plus stand lift to assist patient in getting up and standing upright with improved posture for 15 minutes. Patient completed wheelchair mobility for 50' with LUE. PT worked on wc training and use of LLE to propel. Assessment and plan Mr. Waller is a 72-year-old patient in the rehabilitation with stroke with right hemiparesis. His etiologic diagnosis is ischemic left MCA stroke. His comorbidities are aphasia, expressive and receptive, and essentially global. He has significant decreased physical functioning, with decreased mobility, dysphagia, hypertension, hyperglycemia. He also has esophagitis and esophageal ulcers. Plan: Continue physical, occupational, and speech therapy for 3.5 hours, 5 of 7 days. Continue aspirin 81 mg daily for stroke risk reduction. He is on cefdinir for aspiration pneumonia treatment and UTI potential treatment. He will lisinopril due to borderline low blood pressure and give 500 mill normal saline. Blood pressure responded and patient is currently normotensive. He is voiding with normal residual. Continue Protonix 40 mg daily for GE reflux, esophagitis and esophageal ulcer. SCDs for DVT prophylaxis. Comorbidities That Are Impacting His Rehabilitation: As noted, he is right handed and his dominant side is most impacted. He has issues with coordination between the upper extr emities. He does have to work with the left side in terms of upper extremity for performing his ADLs and mobilization. High risk of GI bleed and therefore he will have the SCDs for DVT prophylaxis al jorge alberto with aspirin for stroke risk reduction. Overall patient is progressing slowly.
[2023-06-17] MEDS: GABAPENTIN 100 MG CAP PO SCH (20:00)
[2023-06-17] MEDS: DOCUSATE NA/SENNA CONC 1 TAB PO PRN (22:07)
[2023-06-19] MEDS: BISACODYL 10 MG RECTAL SUPP PR PRN (08:49)
[2023-06-19 09:07] LABS: Absolute Basophils 0.1 K/uL (0-0.5); Absolute Eosinophils 0.1 K/uL (0-0.5); Absolute Lymphocytes (CBC) 0.6 K/uL (0.7-4.9); Absolute Monocytes 0.4 K/uL (0.1-1.3); Absolute Neutrophil 5.1 K/uL (1.8-8.0); Eosinophils % 1.2 % (0-4.4); Hematocrit 34.9 % (39.6-49.0); Hemoglobin 12.1 g/dL (13.6-17.9); Lymphocytes % 9.6 % (15.3-44.8); MCH 33.2 pg (27.0-35.0); MCHC 34.7 g/dL (32.0-36.0); MCV 95.6 fL (80-100); MPV 7.1 fL (7.6-11.3); Neutrophils % 82.2 % (41.7-73.7); Nucleated Red Blood Cells % 0.1 % (0-0); Platelets 343 thou/uL (152-406); RBC Red Blood Cell Count 3.66 M/uL (4.33-5.43); Red Cell Distribution Width 13.5 % (12.1-15.2)
[2023-06-19 09:39] LABS: Anion Gap 8.9 mEq/L (5.0-15.0); Potassium 3.9 mEq/L (3.5-5.1)
[2023-06-19 11:43] LABS: Absolute Basophils 0.1 K/uL (0-0.5); Absolute Eosinophils 0.1 K/uL (0-0.5); Absolute Lymphocytes (CBC) 0.4 K/uL (0.7-4.9); Absolute Monocytes 0.1 K/uL (0.1-1.3); Absolute Neutrophil 6.5 K/uL (1.8-8.0); Basophils % 0.8 % (0-1.3); Hemoglobin 12.2 g/dL (13.6-17.9); Lymphocytes % 6.2 % (15.3-44.8); MCH 32.9 pg (27.0-35.0); MCHC 33.7 g/dL (32.0-36.0); MCV 97.6 fL (80-100); MPV 7.4 fL (7.6-11.3); Monocytes % 1.9 % (3.3-12.3); Neutrophils % 90.1 % (41.7-73.7); Platelets 351 thou/uL (152-406); RBC Red Blood Cell Count 3.69 M/uL (4.33-5.43); Red Cell Distribution Width 13.5 % (12.1-15.2)
[2023-06-19 11:56] LABS: Anion Gap 13.4 mEq/L (5.0-15.0); Potassium 4.4 mEq/L (3.5-5.1)
[2023-06-19 12:34] LABS: Blood Morphology Comment NOT SEEN (NOT SEEN); Platelet Estimate ADEQ; White Blood Cell Scan OK (OK)
--- NOTE | 2023-06-19 13:08 | RAD REPORT ---
EXAM DESCRIPTION: RAD - Chest Single View - 06/19/2023 12:35 pm CLINICAL HISTORY: r/o pnuemonia COMPARISON: Chest Pa And Lat (2 Views) dated 02/01/2023; Chest Single View dated 12/04/2018; Chest Si ngle View dated 07/19/2018; Chest Pa And Lat (2 Views) dated 01/20/2018 FINDINGS: Lines: None. Lungs: Decreased lung volumes with increased interstitial prominence. Pleural: No significant pleural effusions or pneumothorax. Cardiac: Cardiomegaly. Mediastinum: Within normal limits. Bones: No acute fractures. Other: None IMPRESSION: Increased prominence of the pulmonary interstitium could reflect either mild edema or an atypical infectious/inflammatory process.
--- NOTE | 2023-06-19 18:17 | P.PN ---
Subjective Date of Service: 06/19/23 Nursing staff noticed patient was experienced shivering and rigors No recorded fever. Physical Examination - Vital Signs Temperature: 97.0 F Blood Pressure: 127/60 Pulse: 105 Respirations: 18 Pulse Ox (%): 94 - Studies Laboratory Data (last 24 hrs) 06/19/23 06/19/23 06/19/23 11:36 11:36 08:58 WBC 7.20 Hgb 12.2 L Hct 36.0 L Plt Count 351 Sodium 139 137 Potassium 4.4 3.9 BUN 26 H 26 H Creatinine 1.10 0.93 Glucose 107 H 141 H 06/19/23 08:58 WBC 6.20 Hgb 12.1 L Hct 34.9 L Plt Count 343 Sodium Potassium BUN Creatinine Glucose Assessment And Plan - Plan Physical examination General: NAD, shivering. HEENT: Conjunctiva not pale, anicteric sclera Neck: Supple, no elevated JVD Heart: Heart sounds 1 and 2 normal, regular rhythm, normal rate, no pedal edema Lungs: Clear to auscultation bilaterally, adequate breath sounds bilaterally, no rhonchi or crackles. Abdomen: Soft, nondistended, nontender, normal bowel sounds. Extremities: No tenderness, no deformity Skin: Normal skin turgor, no rash, no nodules or ulcers. Neuro: Right-sided weakness, aphasia is improving. Psychiatry: Normal mood, no agitation. Labs reviewed: Checks x-ray demonstrates increased prominence of the pulmonary interstitium- mild pulm edema versus atypical pneumonia. Assessment and plan Mr. Waller is a 72-year-old patient in the rehabilitation with stroke with right hemiparesis. His etiologic diagnosis is ischemic left MCA stroke. His comorbidities are aphasia, expressive and receptive, and essentially global. He has significant decreased physical functioning, with decreased mobility, dysphagia, hypertension, hyperglycemia. He also has esophagitis and esophageal ulcers. Aspiration pneumonia UTI Plan: Continue physical, occupational, and speech therapy for 3.5 hours, 5 of 7 days as tolerated. Labs rechecked due to shivering and are unremarkable. Obtain urinalysis to rule out UTI. Change oral cefpodoxime to IV Rocephin. Continue aspirin 81 mg daily for stroke risk reduction. lisinopril is on hold due to borderline low blood pressure and give 500 mill normal saline. Blood pressure responded and patient is currently normotensive. He is voiding with normal residual. Continue Protonix 40 mg daily for GE reflux, esophagitis and esophageal ulcer. SCDs for DVT prophylaxis. High risk of GI bleed and therefore he will have the SCDs for DVT prophylaxis along with aspirin for stroke risk reduction.
[2023-06-19] MEDS ORDERED: NA CHLORIDE 0.9% 1,000 ML ONE (19:12)
[2023-06-19] MEDS: CEFTRIAXONE 1,000 MG in NA CHLORIDE 0.9% 50 ML IVPB SCH (19:16)
[2023-06-20] MEDS: HALOPERIDOL LACT 5 MG/ML INJ IV ONE (15:26)
--- NOTE | 2023-06-20 17:28 | P.PN ---
Subjective Date of Service: 06/20/23 Patient is more awake and interactive today, however he is pleasantly confused and has been trying to get out of bed. No issues overnight, no recorded fever. Physical Examination - Vital Signs Temperature: 97.5 F Blood Pressure: 148/72 Pulse: 80 Respirations: 19 Pulse Ox (%): 98 Assessment And Plan - Plan Physical examination General: NAD, confused. HEENT: Conjunctiva not pale, anicteric sclera Heart: Heart sounds 1 and 2 normal, regular rhythm, normal rate, no pedal edema Lungs: Clear to auscultation bilaterally, adequate breath sounds bilaterally, no rhonchi or crackles. Abdomen: Soft, nondistended, nontender, normal bowel sounds. Extremities: No tenderness, no deformity Skin: Normal skin turgor, no rash, no nodules or ulcers. Neuro: Right-sided weakness, he is able to say a few words. Psychiatry: Intermittently agitated. Labs reviewed: Progress Made With Physical And Occupational Therapy: Patient completed bed mobility including turning in bed, supine<>sit with maximum. He completed sliding board transfer with maximum assist, Patient completed scooting in chair/bed with Max A. Patient stood with Breanna Plus lift for 15 min with good upright posture. Patient did mobility with a wheelchair and propelled the WC with unaffected arm but still needs frequent hand over hand assist to stay on task. Mr. Waller continue to make gradual progress with therapy. Assessment and plan Mr. Waller is a 72-year-old patient in the rehabilitation with stroke with right hemiparesis. His etiologic diagnosis is ischemic left MCA stroke. His comorbidities are aphasia, expressive and receptive, and essentially global. He has significant decreased physical functioning, with decreased mobility, dysphagia, hypertension, hyperglycemia. He also has esophagitis and esophageal ulcers. Aspiration pneumonia UTI Hyperactive delirium Plan: Continue physical, occupational, and speech therapy for 3.5 hours, 5 of 7 days as tolerated. Labs rechecked due to shivering and are unremarkable. Obtain urinalysis to rule out UTI. Change oral cefpodoxime to IV Rocephin. Continue aspirin 81 mg daily for stroke risk reduction. Status post IV normal saline for borderline hypotension. Patient blood pressure has improved and he is currently hypertensive. Lisinopril was initially held but resumed today. Haldol given for hyperactive delirium. Monitor. Low dose Seroquel at bedtime He is voiding with normal residual. Continue Protonix 40 mg daily for GE reflux, esophagitis and esophageal ulcer. SCDs for DVT prophylaxis. High risk of GI bleed and therefore he will have the SCDs for DVT prophylaxis along with aspirin for stroke risk reduction.
[2023-06-20] MEDS: QUETIAPINE 25 MG TAB PO SCH (19:52)
[2023-06-21 04:16] LABS: Absolute Eosinophils 0.1 K/uL (0-0.5); Absolute Lymphocytes (CBC) 0.6 K/uL (0.7-4.9); Absolute Monocytes 0.3 K/uL (0.1-1.3); Absolute Neutrophil 3.8 K/uL (1.8-8.0); Basophils % 0.6 % (0-1.3); Eosinophils % 2.6 % (0-4.4); Hematocrit 32.1 % (39.6-49.0); Hemoglobin 11.2 g/dL (13.6-17.9); Lymphocytes % 12.9 % (15.3-44.8); MCH 33.5 pg (27.0-35.0); MCHC 34.9 g/dL (32.0-36.0); MCV 95.9 fL (80-100); MPV 7.4 fL (7.6-11.3); Monocytes % 7.1 % (3.3-12.3); Neutrophils % 76.8 % (41.7-73.7); Nucleated Red Blood Cells % 0.1 % (0-0); Platelets 375 thou/uL (152-406); RBC Red Blood Cell Count 3.35 M/uL (4.33-5.43); Red Cell Distribution Width 13.3 % (12.1-15.2)
[2023-06-21 04:21] LABS: Anion Gap 9.8 mEq/L (5.0-15.0); Potassium 3.8 mEq/L (3.5-5.1)
[2023-06-21] MEDS: lisinopriL 10 MG TAB PO SCH ×2 (08:00→10:44)
[2023-06-21] MEDS: NA CHLORIDE 0.9% 1,000 ML IV SCH (20:46)
[2023-06-21] MEDS: MEGESTROL 40 MG TAB PO SCH (20:52)
--- NOTE | 2023-06-22 00:42 | PN ---
Date of Progress Note: 06/21/2023 Time Of Service: 1:15 p.m. Subjective: Mr. Waller is resting in bed. The speech pathologist is at bedside. He has significan t inability to communicate with global aphasia. He was unable to follow commands to take the left ortega nd and touch his right ear. He eventually did move his left hand. Basic reading complications such as a hand wave. He is able to wave back and donned, but is unable to spontaneously speak or communic ate in any meaningful way. Otherwise, unable to determine if he has any significant pain, but he savage s not appear to do so by facial expression. Objective: Again not able to fully communicate any of his significant issues and he does however lori ear to not be in pain. Obviously, no fevers or chills. No obvious myalgias and arthralgias. No dima h. Physical Examination: Vital Signs: Blood pressure 135/74, pulse up to 93, respiratory rate 70, temperature 98, oxygen satu ration 97%. Weight 189 pounds, height 5 feet 9 inches, BMI 28. General: Mr. Waller is resting in bed. He does track visually and appears to not at times appropri ately. He was able to move the left hand when asked to touch the right face, but he was really unabl e to complete that task. He did have some dense paresis in the right upper extremity and also to the right lower extremity. The nursing staff did note earlier today he had some orthostatic type issues , where his standing blood pressures systolic dropped to the 90s while lying around 140s. Medication s were adjusted to include midodrine 5 mg in the morning and around noon, but not at night, maybe mos tly lying down. Laboratory Studies: White blood cell count 4.9, hemoglobin 11.2, neutrophils 76.8, platelets 375. S odium 139, potassium 3.8, chloride 107, carbon dioxide 26, BUN 21, creatinine 0.9, glucose 109, calci um 9.0. X-ray/imaging: Chest x-ray done on 06/19/2023 showed increased prominence of the pulmonary interstit ium, could reflect either mild edema or an atypical infection versus inflammatory process, it was don e to rule out pneumonia. A shoulder x-ray done on 06/17/2023 showed no acute fracture, no malignancy , mild right AC joint degeneration changes, mild right glenohumeral joint degeneration as well. Knee x-ray done on 06/17/2023 showed no acute fracture, malalignment, or significant focal degenerative c hanges. There is small nonspecific knee effusion. Medications: Tylenol 500 mg every 4 hours as needed, [place] 5/325 every 6 hours as needed, aspirin 81 mg daily, Rocephin receiving 1 g daily, started on 06/18 for presumed urinary tract infection, Neuro ntin 100 mg twice daily, lidocaine patch applied 2 topically daily, Prinivil 10 mg daily, Megace 40 m g twice daily, melatonin 3 mg at bedtime, midodrine 5 mg daily, Ensure Enlive 237 mL twice daily, Pro tonix 40 mg twice daily, Seroquel 25 mg at bedtime, Senokot-S 2 at bedtime, he is receiving some IV f luids due to poor oral intake, and thiamine 100 mg daily. Progress Made With Physical And Occupational Therapy: Today, he completed bed mobilization maximum a ssistance twice, [id number] transfer maximal assistance done twice. Did have the orthostatic hyp otension as noted. Wheelchair mobilization of 75 feet with maximum assistance with bilateral upper e xtremities using hand over hand, he is able to push a little bit bilaterally. With thermodynamics engineer apy, maximum assistance for bathing. The patient is able to wash and dry 4 of 10 body parts, setup a ssistance for verbal cues. He did have significant fatigue while showering, hardly able to stay awak e with transfers. With speech therapy, unable to name any pictures, did repeat 2 of 8 pictures. Als o did show some spontaneous speech and greetings and they were 100% intelligible. Family was present throughout the therapy session. He did appear tired, but did wake up to work with the therapists. Mr. Waller is making very slow progress with physical, occupational, and speech therapy and still re quires around maximal assistance for many activities and is still globally aphasic. Assessment: Mr. Waller is a 72-year-old patient with a right hemispheric stroke, left-sided weaknes s. 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 H e has decreased physical functioning, decreased mobility, dyslipidemia, tachycardia, esophagitis, eso phageal ulcers, and urinary tract infection. Plan: Continue with physical, occupational, and speech therapy for his left MCA stroke with right-si ded paresis and global aphasia. Continue aspirin 81 mg daily for stroke risk reduction. He is being treated for pneumonia in addition to urinary tract infection, we will continue. Continue Prinivil f or his hypertension, Protonix for GE reflux, thiamine for prevention of alcohol withdrawal symptoms. SCDs are in place for DVT prophylaxis. Comorbidities That Are Continuing To Impact His Rehabilitation: His base issue is global aphasia, ma max it difficult for easy communication, but with miming and with re-assist on activities and mimick ing, he is able to begin to do fairly well. He will, however, likely need significant help once he i s discharged and may have to go to snf depending on how much time he has in inpatient [facility]. DYAN Voice ID: [id number] Report ID: [id number]
[2023-06-22] MEDS: MIDODRINE HCL 5 MG TABLET PO SCH (07:50)
--- NOTE | 2023-06-22 13:20 | P.RH.PN ---
Estimated Length of Stay: 22 Expected Discharge Date: 07/04/23 Discharge Disposition Plan: Home Family Support: Yes [facility] Goal: Mobility, Transfers, Self Care Vital Signs: Last Vital Signs Temp 97.2 F 06/22/23 08:00 Pulse 85 06/22/23 08:00 Resp 18 06/22/23 08:00 BP 152/73 H 06/22/23 08:00 Pulse Ox 93 06/22/23 08:00 Laboratory: Laboratory Last Values WBC 4.90 thou/uL (4.3-10.9) 06/21/23 03:33 RBC 3.35 M/uL (4.33-5.43) L 06/21/23 03:33 Hgb 11.2 g/dL (13.6-17.9) L 06/21/23 03:33 Hct 32.1 % (39.6-49.0) L 06/21/23 03:33 MCV 95.9 fL (80-100) 06/21/23 03:33 MCH 33.5 pg (27.0-35.0) 06/21/23 03:33 MCHC 34.9 g/dL (32.0-36.0) 06/21/23 03:33 RDW 13.3 % (12.1-15.2) 06/21/23 03:33 Plt Count 375 thou/uL (152-406) 06/21/23 03:33 MPV 7.4 fL (7.6-11.3) L 06/21/23 03:33 Neutrophils % 76.8 % (41.7-73.7) H 06/21/23 03:33 Lymphocytes % 12.9 % (15.3-44.8) L 06/21/23 03:33 Monocytes % 7.1 % (3.3-12.3) 06/21/23 03:33 Eosinophils % 2.6 % (0-4.4) 06/21/23 03:33 Basophils % 0.6 % (0-1.3) 06/21/23 03:33 Absolute Neutrophils 3.8 K/uL (1.8-8.0) 06/21/23 03:33 Absolute Lymphocytes 0.6 K/uL (0.7-4.9) L 06/21/23 03:33 Absolute Monocytes 0.3 K/uL (0.1-1.3) 06/21/23 03:33 Absolute Eosinophils 0.1 K/uL (0-0.5) 06/21/23 03:33 Absolute Basophils 0.0 K/uL (0-0.5) 06/21/23 03:33 Platelet Estimate Adeq 06/19/23 11:36 Morphology Comment Not seen (NOT SEEN) 06/19/23 11:36 Sodium 139 mEq/L (136-145) 06/21/23 03:33 Potassium 3.8 mEq/L (3.5-5.1) 06/21/23 03:33 Chloride 107 mEq/L (98-107) 06/21/23 03:33 Carbon Dioxide 26 mEq/L (21-32) 06/21/23 03:33 Anion Gap 9.8 mEq/L (5.0-15.0) 06/21/23 03:33 BUN 21 mg/dL (7-18) H 06/21/23 03:33 Creatinine 0.90 mg/dL (0.70-1.30) 06/21/23 03:33 Est GFR (CKD-EPI) 92 ml/min (=/>90) 06/21/23 03:33 Glucose 109 mg/dL (74-106) H 06/21/23 03:33 POC Glucose 117 mg/dL (65-120) 06/19/23 11:14 Calcium 9.0 mg/dL (8.5-10.1) 06/21/23 03:33 Magnesium 2.3 mg/dL (1.6-2.4) 06/16/23 07:53 Albumin 3.0 g/dL (3.4-5.0) L 06/16/23 07:53 Prealbumin 12.8 mg/dL (20-40) L 06/16/23 07:53 Smear Scan Ok (OK) 06/19/23 11:36 Weight: 189 lb 14.4 oz Wound Present: No Closed Surgical Incision Present: Yes Negative Pressure Wound Therapy Present: No Physician Update: Labs reviewed. Mild anemia. BIMS 0, pain in right side. Right groin incision is good. Global aphasia. Met 1/4 speech swallowing goal. Fluent expressive aphasia. 60% with yes and no. He repeated real objects. Standing 15 min with GISSEL lift. Still has orthostatic drop in BP but BP improved with midodrin 5 mg bid. Summary: Patient's care plan and [facility] goals have been reviewed and revised as necessary. Please see the Rehabilitation Signature page for all necessary signatures.
[2023-06-22] MEDS: ENOXAPARIN 40 MG/0.4 ML SQ SCH (16:38)
[2023-06-22] MEDS ORDERED: lisinopriL 5 MG TAB PO SCH (20:00)
[2023-06-22] MEDS ORDERED: NA CHLORIDE 0.9% 250 ML ONE (20:57)
[2023-06-22] MEDS: lisinopriL 5 MG TAB PO SCH (21:06)
[2023-06-22] MEDS: CRANBERRY FRUIT EXTRACT 200 MG CAP PO SCH (21:06)
[2023-06-22] MEDS: DULOXETINE 30 MG CAP PO SCH (21:07)
[2023-06-22] MEDS: GABAPENTIN 300 MG CAP PO SCH (21:07)
[2023-06-22] MEDS: MAGNESIUM OXIDE 400 MG TAB PO SCH (21:08)
[2023-06-22] MEDS: guaiFENesin 100 MG/5 ML UCUP PO PRN (23:44)
[2023-06-23 04:09] LABS: Absolute Lymphocytes (CBC) 0.3 K/uL (0.7-4.9); Absolute Monocytes 0.3 K/uL (0.1-1.3); Absolute Neutrophil 1.2 K/uL (1.8-8.0); Basophils % 1.7 % (0-1.3); Eosinophils % 1.6 % (0-4.4); Hematocrit 30.8 % (39.6-49.0); Hemoglobin 10.8 g/dL (13.6-17.9); Lymphocytes % 16.7 % (15.3-44.8); MCH 33.5 pg (27.0-35.0); MCHC 35.1 g/dL (32.0-36.0); MCV 95.4 fL (80-100); MPV 7.2 fL (7.6-11.3); Nucleated Red Blood Cells % 0.1 % (0-0); Platelets 354 thou/uL (152-406); RBC Red Blood Cell Count 3.23 M/uL (4.33-5.43); Red Cell Distribution Width 14.1 % (12.1-15.2)
[2023-06-23 04:43] LABS: Albumin 2.4 g/dL (3.4-5.0); Anion Gap 7.9 mEq/L (5.0-15.0); Magnesium 2.5 mg/dL (1.6-2.4); Potassium 3.9 mEq/L (3.5-5.1)
[2023-06-23 04:55] LABS: Blood Morphology Comment NOT SEEN (NOT SEEN); Platelet Estimate ADEQ; White Blood Cell Scan OK (OK)
--- NOTE | 2023-06-23 07:53 | RAD REPORT ---
EXAM DESCRIPTION: RAD - Chest Single View - 06/23/2023 7:39 am CLINICAL HISTORY: cough COMPARISON: Chest Single View dated 06/19/2023; Chest Pa And Lat (2 Views) dated 02/01/2023; Chest Sin gle View dated 12/04/2018; Chest Single View dated 07/19/2018 FINDINGS: Lines: None. Lungs: Mild improved aeration with some residual interstitial prominence. No consolidation. No edema. Pleural: No significant pleural effusions or pneumothorax. Cardiac: Similar size and configuration. Mediastinum: Within normal limits. Bones: No acute fractures. Other: None IMPRESSION: Mild improved aeration compared 06/19/2023. Residual prominent interstitial markings danny t could reflect sequela of infection/inflammation.
[2023-06-23] MEDS: DOCUSATE NA/SENNA CONC 1 TAB PO SCH (08:36)
[2023-06-23] MEDS: MIDODRINE HCL 5 MG TABLET PO SCH (12:21)
[2023-06-23] MEDS: NA CHLORIDE 0.9% 1,000 ML IV SCH (14:47)
--- NOTE | 2023-06-24 02:33 | PN ---
Date of Progress Note: 06/23/2023 Time Of Service: 1:20 p.m. Subjective: Mr. Waller is resting in a chair and his speech pathologist is with him. He is much mo re alert today. Reportedly, he was able to repeat a few simple phrases, but not yet very fluent conv ersational speech, so has difficulty with meaningful communication. Automatic greetings are still do ne. Objective: No fevers, chills. No nausea, vomiting. No myalgias, arthralgias, rash, headache, weigh t change. Physical Examination: Vital Signs: Blood pressure 109/63, pulse of 70, respiratory rate 16, temperature 97.6, oxygen satur ation 98%. General: Mr. Waller is sitting in a chair. He has some significant difficulty following commands, was not able to show a thumbs-up sign when asked to do so, and did not count 2 fingers when they were placed immediately in front of him. However, as the speech pathologist was mentioning he was able t o repeat some simple phrases, but did not have independent conversation, where he is able to go back and forth and answer appropriately and then initiate meaningful speech. In terms of additional defic its, he still has difficulty moving the right upper and lower extremities, but is more impacted by hi s right-sided weakness from his left MCA stroke. Laboratory Studies: White blood cell count did go down to 1.8. Prior admissions did show he had dec reased white blood cell count about 3 years ago around 2 to 3. He has low hemoglobin and hematocrit. His platelet count is normal. Sodium 140, potassium 3.9, chloride 111, carbon dioxide 25, BUN 24, creatinine 0.96, glucose 95. Calcium 9.3, magnesium 2.5, albumin 2.4, prealbumin 9.0. Chest x-ray d one today showed mild improved aeration compared to 06/19/2023. There are residual prominent interst itial markings, which could reflect sequelae of infection or inflammation. Medications: His medications have been reviewed. He has had gabapentin increased to 300 mg twice da romana; guaifenesin for cough, that is adjusted; Prinivil 5 mg twice daily; magnesium oxide 400 mg twice daily; has midodrine for pressure support 5 mg in the morning and at noontime because of low orthost atic blood pressures; Senokot-S 2 twice daily for constipation and did receive some IV fluids today b ecause of his dehydration. Progress Made With Physical And Occupational Therapy Along With Speech Therapy: Today, with physical therapy, completed nwa-uh-tujpc transfers with moderate assistance twice, wheelchair mobilization wi th maximal assistance. Still unable to coordinate his left upper extremity and lower extremity to pr opel a wheelchair. With occupational therapy, he did show some improvement in ability to follow dire ctions for bed mobilization, lower body dressing. With speech, answered yes/no questions with 60% ac curacy. Phrases completed with 25% accuracy. He was unable to use auditory word recognition in a fi eld of 3. Wrote sentences, repeated with 50% accuracy. He is making slow progress with his physical, occupational, and speech therapy given his significant stroke deficits. Assessment: Mr. Waller is a -cces-jzj patient, affecting the left middle cerebral artery with right-sided weakness, expressive aphasia, and dysphagia. He has dyslipidemia, esophagitis, urin black tract infection. He is receiving medication for orthostatic hypotension. Poor appetite, neuropa thic pain, and depression. Plan: 1.We will continue with physical, occupational, and speech therapy for 3.5 hours, 5 of 7 days. 2.His multiple medications, which are listed, are continued to address his comorbid conditions, incl uding aspirin for stroke risk reduction, Lovenox for DVT risk reduction, gabapentin for neuropathic p ain, [place] for severe pain, magnesium oxide for muscle spasms, Megace for poor appetite. Malnutritio n addressed by Ensure Enlive being added. Protonix for GE reflux. Senokot-S for constipation. Thia mine to reduce risk of withdrawal effects from alcohol. Comorbidities That Are Impacting Rehabilitation: His comorbidities are aggressively managed and not negatively impacting his rehabilitation. LB/MODL Voice ID: [id number] Report ID: [id number]
[2023-06-24 03:44] LABS: Absolute Lymphocytes (CBC) 0.4 K/uL (0.7-4.9); Absolute Monocytes 0.3 K/uL (0.1-1.3); Absolute Neutrophil 0.6 K/uL (1.8-8.0); Eosinophils % 3.5 % (0-4.4); Hematocrit 29.1 % (39.6-49.0); Hemoglobin 10.3 g/dL (13.6-17.9); Lymphocytes % 31.9 % (15.3-44.8); MCH 33.5 pg (27.0-35.0); MCHC 35.3 g/dL (32.0-36.0); MCV 94.7 fL (80-100); MPV 6.9 fL (7.6-11.3); Monocytes % 20.7 % (3.3-12.3); Neutrophils % 41.9 % (41.7-73.7); Nucleated Red Blood Cells % 0.6 % (0-0); Platelets 327 thou/uL (152-406); RBC Red Blood Cell Count 3.07 M/uL (4.33-5.43); Red Cell Distribution Width 13.7 % (12.1-15.2)
--- NOTE | 2023-06-24 13:33 | P.RH.PN ---
Estimated Length of Stay: 21 Expected Discharge Date: 06/30/23 Discharge Disposition Plan: Home Family Support: Yes [facility] Goal: Mobility, Transfers, Self Care Vital Signs: Last Vital Signs Temp 98.3 F 06/24/23 06:54 Pulse 92 H 06/24/23 09:51 Resp 19 06/24/23 06:54 BP 134/72 06/24/23 09:51 Pulse Ox 97 06/24/23 06:54 Laboratory: Laboratory Last Values WBC 1.30 thou/uL (4.3-10.9) L 06/24/23 03:11 RBC 3.07 M/uL (4.33-5.43) L 06/24/23 03:11 Hgb 10.3 g/dL (13.6-17.9) L 06/24/23 03:11 Hct 29.1 % (39.6-49.0) L 06/24/23 03:11 MCV 94.7 fL (80-100) 06/24/23 03:11 MCH 33.5 pg (27.0-35.0) 06/24/23 03:11 MCHC 35.3 g/dL (32.0-36.0) 06/24/23 03:11 RDW 13.7 % (12.1-15.2) 06/24/23 03:11 Plt Count 327 thou/uL (152-406) 06/24/23 03:11 MPV 6.9 fL (7.6-11.3) L 06/24/23 03:11 Neutrophils % 41.9 % (41.7-73.7) 06/24/23 03:11 Lymphocytes % 31.9 % (15.3-44.8) 06/24/23 03:11 Monocytes % 20.7 % (3.3-12.3) H 06/24/23 03:11 Eosinophils % 3.5 % (0-4.4) 06/24/23 03:11 Basophils % 2.0 % (0-1.3) H 06/24/23 03:11 Absolute Neutrophils 0.6 K/uL (1.8-8.0) L 06/24/23 03:11 Absolute Lymphocytes 0.4 K/uL (0.7-4.9) L 06/24/23 03:11 Absolute Monocytes 0.3 K/uL (0.1-1.3) 06/24/23 03:11 Absolute Eosinophils 0.0 K/uL (0-0.5) 06/24/23 03:11 Absolute Basophils 0.0 K/uL (0-0.5) 06/24/23 03:11 Platelet Estimate Adeq 06/23/23 03:28 Morphology Comment Not seen (NOT SEEN) 06/23/23 03:28 Sodium 141 mEq/L (136-145) 06/24/23 03:11 Potassium 4.0 mEq/L (3.5-5.1) 06/24/23 03:11 Chloride 114 mEq/L (98-107) H 06/24/23 03:11 Carbon Dioxide 23 mEq/L (21-32) 06/24/23 03:11 Anion Gap 8.0 mEq/L (5.0-15.0) 06/24/23 03:11 BUN 27 mg/dL (7-18) H 06/24/23 03:11 Creatinine 0.96 mg/dL (0.70-1.30) 06/24/23 03:11 Est GFR (CKD-EPI) 85 ml/min (=/>90) L 06/24/23 03:11 Glucose 91 mg/dL (74-106) 06/24/23 03:11 POC Glucose 117 mg/dL (65-120) 06/19/23 11:14 Calcium 8.7 mg/dL (8.5-10.1) 06/24/23 03:11 Magnesium 2.5 mg/dL (1.6-2.4) H 06/23/23 03:28 Albumin 2.4 g/dL (3.4-5.0) L 06/23/23 03:28 Prealbumin Cancelled 06/23/23 Unknown Smear Scan Ok (OK) 06/23/23 03:28 Weight: 189 lb 14.4 oz Wound Present: No Closed Surgical Incision Present: Yes Negative Pressure Wound Therapy Present: No Physician Update: Labs reviewed. He has moderate neutropenia. Able to immitate vowels and simple sounds. He becomes upset easily. Improved nonverbal communication. Increased to 4 hours in the wheelchair. Better verbal understanding. Summary: Patient's care plan and [facility] goals have been reviewed and revised as necessary. Please see the Rehabilitation Signature page for all necessary signatures.
[2023-06-27 04:48] LABS: Absolute Eosinophils 0.1 K/uL (0-0.5); Absolute Lymphocytes (CBC) 0.6 K/uL (0.7-4.9); Absolute Monocytes 0.1 K/uL (0.1-1.3); Absolute Neutrophil 0.8 K/uL (1.8-8.0); Basophils % 1.9 % (0-1.3); Eosinophils % 5.6 % (0-4.4); Hematocrit 30.7 % (39.6-49.0); Hemoglobin 10.6 g/dL (13.6-17.9); Lymphocytes % 35.3 % (15.3-44.8); MCH 32.6 pg (27.0-35.0); MCHC 34.6 g/dL (32.0-36.0); MCV 94.2 fL (80-100); MPV 7.2 fL (7.6-11.3); Neutrophils % 48.2 % (41.7-73.7); Nucleated Red Blood Cells % 0.1 % (0-0); Platelets 266 thou/uL (152-406); RBC Red Blood Cell Count 3.26 M/uL (4.33-5.43); Red Cell Distribution Width 13.8 % (12.1-15.2)
[2023-06-27 04:54] LABS: Anion Gap 7.1 mEq/L (5.0-15.0); Potassium 4.1 mEq/L (3.5-5.1)
[2023-06-27] MEDS: NA CHLORIDE 0.9% 1,000 ML IV SCH (14:45)
[2023-06-27] MEDS: MEGESTROL 400 MG/10 ML UCUP PO SCH (21:03)
--- NOTE | 2023-06-27 23:23 | PN ---
Date of Progress Note: 06/27/2023 Time Of Service: 01:35 p.m. Subjective: Mr. Waller in a chair, heading to the shower. His engagement is minimally improved com pared to when he was last seen. He did have attempt at showing a thumbs up sign and responding when asked to show 2 fingers and with the left hand, minimal present. He does have somewhat of a depresse d mood. He is largely nonverbal following a stroke, but may have basic gestures such as greeting ges tures of waving when waved to as greeting. Objective: No apparent fevers or chills. No obvious myalgias or arthralgias. No rash. Physical Examination: Vital Signs: Blood pressure 156/81, pulse 74, respiratory rate 18, temperature 98.5. Oxygen saturat ion 97%. General: Mr. Waller is resting in his chair, heading to the shower. HEENT: He does appear normocephalic, atraumatic. Sclerae anicteric. Oropharynx pink, moist. Neck: Supple. Chest: Clear. Neurological: Continued weakness in the right upper extremity with expressive aphasia and dysphagia following his stroke, which is in the left middle cerebral artery territory. Assessment: Does have urinary tract infection, esophagitis, dyslipidemia, hypotension, poor appetite , and neuropathic pain and poststroke depression. Plan: Continue physical, occupational, and speech therapy for 3.5 hours, 5 out of 7 days. We will c ontinue with comorbid condition medications which are noted including the Megace appetite stimulant t o 400 mg twice daily. Continue Ensure Enlive. Continue Protonix for GE reflux, Senokot for constipa tion, thiamine for alcohol withdrawal risk reduction, gabapentin for neuropathic pain, [place] for minal re pain, magnesium oxide for muscle spasms. Comorbidities That Are Impacting Rehabilitation: He does have significant depression. His depressio n medications have been adjusted. He does have poor appetite and Megace is adjusted to assist him to eat. He is making again slow progress overall, perhaps because of the significance of his stroke an d may require a much longer time than is available in inpatient rehab for him to begin to recover and return home safely. LB/MODL Voice ID: [id number] Report ID: [id number]
[2023-06-28] MEDS: DULOXETINE 20 MG CAP PO SCH (20:18)
[2023-06-28] MEDS: CYANOCOBALAMIN 1000MCG/ML INJ IM SCH (20:19)
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
--- NOTE | 2023-06-29 22:58 | PN ---
Date of Progress Note: 06/29/2023 Time Of Service: 1:10 p.m. Subjective: Mr. Waller is sitting in a chair. Therapist is at the bedside. He continues to have a dense right-sided paresis. Also noted his son is present. The patient does have more nonverbal com munication. He is able to smile. He moves the left hand much well to command, which is the nonaffec sundar side. Right upper extremity, very dense paresis. Also, right leg very little movement listed si nce in rehabilitation. Review of Systems: No fevers, chills. No significant myalgias, arthralgias, rash, headache, weight change. Physical Examination: Vital Signs: Blood pressure 138/69, pulse 66, respiratory rate 15, temperature 98.2, oxygen saturati on 100%. General: Mr. Waller is resting in a chair as noted. When asked to move the arms, he is actually mo ving the left side very well, again the nonparetic side that is arm and legs. Right arm not able to move well. Neglect noted on the right side. Significant dense paresis upper and lower extremities u nchanged. He does have slightly increased tone in the right upper and lower extremity. Chest: Clear. Abdomen: Soft. Extremities: Show no significant edema on the left. Mild edema in the right lower extremity. Laboratory Studies: No new laboratory studies. X-ray/imaging: No new x-rays or imaging. Medications: Medications have been reviewed and are unchanged. He did start receiving B12 injection s yesterday to help with his energy level. Progress Made With Physical, Occupational, And Speech Therapy: Today, he performed multiple sit-to-s tand transfers and parallel bars with moderate assistance. Did need help placing a right foot. He d id perform standing balance activities within the parallel bars requiring moderate assistance. With occupational therapy, a minimum assist for gabzoi-vc-emp transfers. He was able to wash face with se tup assistance and verbal cues. His spouse is at the bedside and with therapist. With speech, he wa s able to initiate simple words with minimum assistance and 70% accuracy. He was able to do auditory word recognition tasks with 90% accuracy and minimum assistance. He consumes 75% of his meal. No o vert signs of aspiration. Mr. Waller is making fair progress overall with physical, occupational, and speech therapy. The spe ech pathologist noted he did name 1 of 5 objects and 10 of 10 real objects were named with repetition . Making some more progress there. Assessment: Mr. 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 His comorbi dities, pain, constipation, depression, poor energy level, hypertension, poor appetite, malnutrition, insomnia, and is at risk for alcohol withdrawal. Plan: 1.Continue with physical, occupational, speech therapy for 3.5 hours, 5 of 7 days. 2.He will continue all of his medications as noted. Comorbidities That Are Impacting Rehabilitation: Stroke is significant and the patient's family is n ot likely to be able to help him at home as he is very far away from being able to be independent and safe with transfers, mobilization, and performing activities of daily living. Therefore, it is caren mmended the patient may have to go to senior living to have continue time to recover from his strok e and be able to go home or in a more safe manner. No acute. LB/MODL Voice ID: [id number] Report ID: [id number]
[2023-06-30 08:15] LABS: Absolute Eosinophils 0.1 K/uL (0-0.5); Absolute Lymphocytes (CBC) 0.7 K/uL (0.7-4.9); Absolute Monocytes 0.2 K/uL (0.1-1.3); Absolute Neutrophil 1.7 K/uL (1.8-8.0); Basophils % 0.6 % (0-1.3); Eosinophils % 2.2 % (0-4.4); Hematocrit 29.4 % (39.6-49.0); Hemoglobin 10.2 g/dL (13.6-17.9); Lymphocytes % 25.5 % (15.3-44.8); MCHC 34.6 g/dL (32.0-36.0); MCV 92.5 fL (80-100); Monocytes % 7.9 % (3.3-12.3); Neutrophils % 63.8 % (41.7-73.7); Platelets 287 thou/uL (152-406); RBC Red Blood Cell Count 3.18 M/uL (4.33-5.43); Red Cell Distribution Width 14.2 % (12.1-15.2)
[2023-06-30 08:26] LABS: Albumin 2.8 g/dL (3.4-5.0); Anion Gap 5.9 mEq/L (5.0-15.0); Magnesium 2.2 mg/dL (1.6-2.4); Potassium 3.9 mEq/L (3.5-5.1); Prealbumin 14.7 mg/dL (20-40)
--- NOTE | 2023-06-30 19:50 | PN ---
Date of Progress Note: 06/30/2023 Time Of Service: 1:20 p.m. Subjective: Mr. Waller is resting in bed between therapy sessions. He has a dense paresis of the r ight upper and lower extremities with expressive or receptive aphasia showing slight improvement, but he is more alert, interactive today, of course moves his left side much better than the non-stroke a ffected side. Review of Systems: No fevers, chills, nausea, vomiting. No significant myalgias, arthralgias, rash, headache, or weight change. Physical Examination: Vital Signs: Blood pressure 112/58, pulse of 98, respiratory rate 16, temperature 97.4, oxygen satur ation 95%. General: Mr. Waller is sitting in his bed. He has family at the bedside, his . He has dense p aresis as noted in the right upper and lower extremity. Decreased sensation in right side compared t o the left. Lungs: Clear to auscultation. Heart: Regular rate. Extremities: Show mild edema in the right lower extremity. Medications: His medications have been reviewed and are unchanged. He does have Megace for appetite stimulation. DVT prophylaxis provided with aspirin and Lovenox 40 mg twice daily, has gabapentin fo r neuropathic pain, perphenazine for cough, B12 for energy. Laboratory Studies: White blood cell count 2.7, hemoglobin 10.2, platelets 287. Sodium 141, potassi um 3.9, chloride 114, carbon dioxide 25, BUN 17, creatinine 0.8. His prealbumin improved from 9 to 1 4.7 albumin improved from 2.4 to 2.8. Magnesium now normalized at 2.2. Calcium normal at 8.6. X-ray/imaging: No new x-rays or imaging. Progress Made With Physical, Occupational, And Speech Therapy: Today with physical therapy, supine-t o-sit transfers with contact guard assistance, otnkq-ik-lldas transfers from bed to wheelchair with m oderate assistance without assistive device. Gait training was moderate to maximum assistance in the parallel bars, require a lot of assistance with truncal support. He was able to ambulate the length of the parallel bars multiple times, which is 8 feet. With occupational therapy, bathing moderate a ssistance, lower body dressing minimum assistance, able to don and doff footwear, required assistance with the right upper extremity. I did wash 7 of 10 body parts with setup assistance and verbal cues . With speech, able to answer yes/no questions with 70% accuracy and moderate assistance. Able to d o auditory word recognition tasks with 80% accuracy and minimal assistance. He is able to repeat 10 words with minimal assistance. Mr. Waller is making better progress again with speech therapy, physical and occupational therapy, w hich are significantly impacted by dense paresis of the right upper and lower extremity. Assessment: Mr. Waller is a 72-year-old patient in the rehabilitation unit with a left hemispheric stroke producing dense paresis of the right upper and lower extremity with expressive receptive aphas ia. He has hypertension, poor appetite, improved malnutrition, insomnia, constipation, and risk of a lcohol withdrawal which is fading very well. Plan: Continue with physical and occupational along with speech therapy for 3-1/2 hours, 5 of 7 days . We will continue with aspirin 81 mg daily for stroke risk reduction, [place] 5/325 as needed for arturo n, Lovenox for DVT prophylaxis, Cymbalta for his depression, from which he is improving, gabapentin f or neuropathic pain, guaifenesin for cough, Prinivil for hypertension, Megace for poor appetite, mido drine for pressure support, Senokot-S for constipation, Seroquel for any psychotic type features, Pro tonix for GE reflux, and thiamine for alcohol withdrawal. Comorbidities That Are Impacting Rehabilitation: As noted, the patient does have dense paresis and i s unable to be discharged home with family as he is unsafe and [facility] is selected by family. The patient will likely be discharged to [facility] as he is making very slow progress with his physical and occupational therapy. LB/MODL Voice ID: [id number] Report ID: [id number]
--- NOTE | 2023-07-01 13:34 | P.RH.PN ---
Estimated Length of Stay: 22 Expected Discharge Date: 07/12/23 Discharge Disposition Plan: Home Family Support: Yes Group Home Goal: Mobility, Transfers, Self Care Vital Signs: Last Vital Signs Temp 97.1 F 07/01/23 08:00 Pulse 91 H 07/01/23 08:00 Resp 18 07/01/23 08:00 BP 119/79 07/01/23 08:00 Pulse Ox 99 07/01/23 08:00 Laboratory: Laboratory Last Values WBC 2.70 thou/uL (4.3-10.9) L 06/30/23 07:30 RBC 3.18 M/uL (4.33-5.43) L 06/30/23 07:30 Hgb 10.2 g/dL (13.6-17.9) L 06/30/23 07:30 Hct 29.4 % (39.6-49.0) L 06/30/23 07:30 MCV 92.5 fL (80-100) 06/30/23 07:30 MCH 32.0 pg (27.0-35.0) 06/30/23 07:30 MCHC 34.6 g/dL (32.0-36.0) 06/30/23 07:30 RDW 14.2 % (12.1-15.2) 06/30/23 07:30 Plt Count 287 thou/uL (152-406) 06/30/23 07:30 MPV 7.0 fL (7.6-11.3) L 06/30/23 07:30 Neutrophils % 63.8 % (41.7-73.7) 06/30/23 07:30 Lymphocytes % 25.5 % (15.3-44.8) 06/30/23 07:30 Monocytes % 7.9 % (3.3-12.3) 06/30/23 07:30 Eosinophils % 2.2 % (0-4.4) 06/30/23 07:30 Basophils % 0.6 % (0-1.3) 06/30/23 07:30 Absolute Neutrophils 1.7 K/uL (1.8-8.0) L 06/30/23 07:30 Absolute Lymphocytes 0.7 K/uL (0.7-4.9) 06/30/23 07:30 Absolute Monocytes 0.2 K/uL (0.1-1.3) 06/30/23 07:30 Absolute Eosinophils 0.1 K/uL (0-0.5) 06/30/23 07:30 Absolute Basophils 0.0 K/uL (0-0.5) 06/30/23 07:30 Platelet Estimate Adeq 06/23/23 03:28 Morphology Comment Not seen (NOT SEEN) 06/23/23 03:28 Sodium 141 mEq/L (136-145) 06/30/23 07:30 Potassium 3.9 mEq/L (3.5-5.1) 06/30/23 07:30 Chloride 114 mEq/L (98-107) H 06/30/23 07:30 Carbon Dioxide 25 mEq/L (21-32) 06/30/23 07:30 Anion Gap 5.9 mEq/L (5.0-15.0) 06/30/23 07:30 BUN 17 mg/dL (7-18) 06/30/23 07:30 Creatinine 0.80 mg/dL (0.70-1.30) 06/30/23 07:30 Est GFR (CKD-EPI) 95 ml/min (=/>90) 06/30/23 07:30 Glucose 102 mg/dL (74-106) 06/30/23 07:30 POC Glucose 117 mg/dL (65-120) 06/19/23 11:14 Calcium 8.6 mg/dL (8.5-10.1) 06/30/23 07:30 Magnesium 2.2 mg/dL (1.6-2.4) 06/30/23 07:30 Albumin 2.8 g/dL (3.4-5.0) L 06/30/23 07:30 Prealbumin 14.7 mg/dL (20-40) L 06/30/23 07:30 Smear Scan Ok (OK) 06/23/23 03:28 Weight: 189 lb 14.4 oz Wound Present: No Closed Surgical Incision Present: Yes Negative Pressure Wound Therapy Present: No Physician Update: WBC in creased to 2.7, Hgb 10.2. Admission BIMS 0. Dense right hemiplegia. 2/4 speech goals. Up to 70 % with yes/no. He can repeat simple phrases. 44/ short term physical therapy goal. Min assist for bed mobility and sit to stand.WC 75' with CGA. Improved sit to stand with max assist. Grooming with supervision. Will need SNF. Summary: Patient's care plan and termite inspector goals have been reviewed and revised as necessary. Please see the Rehabilitation Signature page for all necessary signatures.
[2023-07-04 05:52] LABS: Specific Gravity 1.025 (1.005-1.030); Sqamous Epithelial <5 /HPF (None Seen); Urine Bacteria <20 /HPF (<20); Urine Bilirubin NEGATIVE (Negative); Urine Blood Negative (Negative); Urine Clarity Turbid (Clear); Urine Color Yellow (Yellow); Urine Culture Reflex Order REFLEXED; Urine Glucose NEGATIVE (Negative); Urine Ketones NEGATIVE (Negative); Urine Microscopic Reflex YN ORDER UMIC; Urine Mucus Slight /HPF (None Seen); Urine Nitrite NEGATIVE (Negative); Urine Protein TRACE (Negative); Urine RBC <5 /HPF (None Seen); Urine Urobilinogen 1+ (Normal); Urine pH 6.5 (5.0-7.0)
[2023-07-04] MEDS: NA CHLORIDE 0.9% 1,000 ML IV SCH ×2 (14:02→20:51)
[2023-07-04] MEDS: NA CHLORIDE 0.9% 500 ML IV ONE (19:25)
[2023-07-04] MEDS ORDERED: POLYETHYL GLY 3350 17 GM/DOSE PO PRN (19:25)
[2023-07-04] MEDS ORDERED: NA CHLORIDE 0.9% 1,000 ML ONE (19:57)
--- NOTE | 2023-07-05 01:43 | PN ---
Date of Progress Note: 07/04/2023 Time Of Service: 1:20 p.m. Subjective: Mr. Waller is sitting in his chair in the room. His right-sided weakness has improved slightly compared to the last several days and he is showing slight improvement in his interaction, a lthough today he appeared somewhat drowsy and sleepy with family at the bedside. He is actually in t he bed lying, somewhat sleepy. Review of Systems: The patient per family is again sleepy, but arousable and somewhat interactive, although slowly inter active and no new findings in terms of his review of systems. Physical Examination: Vital Signs: Blood pressure 144/78, pulse 70, respiratory rate of 18, temperature 97.0, oxygen satu ration 96%. General: Mr. Waller is lying in bed. Extremities: He does have right upper and lower extremities from his left MCA stroke and not moving the right upper extremity very well and the right lower extremity also very little movement while in bed. Left side, he does have normal movement. His right upper and lower extremities, he has mildly increased tone. Laboratory Studies: No new laboratory studies. X-ray/imaging: No new x-rays or imaging. Medications: Medications have been reviewed and remained unchanged. He is taking stool softener and laxative for constipation. He does have poor oral intake and is actually receiving IV hydration. H e will receive a bolus of 500 cc and 2 L of normal saline. It is noted that the patient did have a l ittle urine production. Last night, he was straight cathed, produced about 100 cc and then all today he just put 200 cc. Again, he will continue with a bolus IV hydration 500 cc and normal saline and continue with 100 cc an hour. Otherwise, medications are unchanged. Progress Made With Physical, Occupational, And Speech Therapy: Today, with physical therapy, he did multiple pyh-bj-apkig transfers with moderate assistance, bed mobilization bjlswcu-hu-xywtodmk assist ance. Ambulated in the parallel bars 8-10 feet 3 times with physical therapy attempting to help him with his mobilization. Wheelchair mobilization continued for about 40 feet. Occupational therapy, b athing, max assistance; upper body dressing with some assistance; and grooming, min assist with verba l cues. With speech therapy today, he needed moderate assistance and maximal assistance just for yes and no questions and auditory word recognition. Again, moderate assistance needed for initiating si mple words and was about 70% accurate. Assessment: Mr. Waller is making very slow progress with his ability to improve his right upper and lower extremities strength after his left middle cerebral artery stroke. His oral intake has decrea sed significantly to the point that he is significantly dehydrated with low urine output. He is rece iving IV hydration with normal saline. His comorbidities include constipation, insomnia, malnutritio n, hypertension, and potential alcohol withdrawal. Again, the right upper extremity paresis with exp ressive aphasia and receptive aphasias still present. Plan: 1.Continue with aggressive physical, occupational, and speech therapy for 3.5 hours, 5 of 7 days. 2.Continue with his intravenous hydration. Continue with Megace for poor appetite midodrine for pre ssure support, Senokot S for constipation. Seroquel for any potential psychotic issues, Protonix for GE reflux, and Cymbalta for depression. Comorbidities That Are Impacting His Rehabilitation: Currently, very poor oral intake is leading to dehydration for which he has IV fluids. LB/MODL Voice ID: [id number] Report ID: [id number]
[2023-07-05 04:30] LABS: Anion Gap 10.3 mEq/L (5.0-15.0); Potassium 4.3 mEq/L (3.5-5.1)
[2023-07-05 04:35] LABS: Absolute Monocytes 0.4 K/uL (0.1-1.3); Absolute Neutrophil 3.1 K/uL (1.8-8.0); Basophils % 0.7 % (0-1.3); Eosinophils % 1.1 % (0-4.4); Hematocrit 28.5 % (39.6-49.0); Hemoglobin 10.1 g/dL (13.6-17.9); Lymphocytes % 22.1 % (15.3-44.8); MCH 32.7 pg (27.0-35.0); MCHC 35.5 g/dL (32.0-36.0); MCV 92.1 fL (80-100); MPV 6.9 fL (7.6-11.3); Monocytes % 8.8 % (3.3-12.3); Neutrophils % 67.3 % (41.7-73.7); Nucleated Red Blood Cells % 0.1 % (0-0); Platelets 278 thou/uL (152-406); Red Cell Distribution Width 14.4 % (12.1-15.2)
[2023-07-05] MEDS: LACTULOSE 20 GM/30 ML UCUP PO ONE (07:23)
[2023-07-05] MEDS: CYANOCOBALAMIN 1000MCG/ML INJ IM SCH (10:05)
[2023-07-06] MEDS: DULOXETINE 30 MG CAP PO SCH (20:45)
--- NOTE | 2023-07-06 20:53 | PN ---
Date of Progress Note: 07/06/2023 Time Of Service: 1:20 p.m. Subjective: Mr. Waller is resting in bed, speech therapist at bedside. He is significantly letharg ic today, but early on today it was noted by the therapist that he was able to get out of bed. Krissyjet dionne therapist actually noted she took him to the office to work on the computer, had initially paid horacio e attention, then kept his head down and refused to cooperate more. He still has a dense paresis in his right upper extremity from his left middle cerebral artery stroke. Objective: No reported fevers or chills. Difficult to assess if there is any significant myalgias o r arthralgias. The patient does not appear to be in any pain when passively moving his extremities. No significant edema in the lower extremities. Physical Examination: Vital Signs: Blood pressure 143/83, pulse 83, respiratory rate 16, temperature 96.9, oxygen saturati on 96%. General: Mr. Waller again is resting in bed. He appears somewhat sleepy, but can be aroused to ope n his eyes and pay attention for a moment or two and may make some half gestures of communication. Extremities: Right upper and lower extremity, no significant movement noted. The left side does wit hdraw to stimulation such as rubbing the bottom of his left foot and will result in withdrawal and ho lding the left arm. He can pull back with somewhat slight increase in his tone. Laboratory Studies: White blood cell count 4.5, hemoglobin 10.1, platelets are 278. Sodium 140, pot assium 4.3, chloride 113, carbon dioxide 21, BUN 33, creatinine 1.54, which is an elevation from the 18th when it is 0.8. The patient again is somewhat dehydrated from poor oral intake and will have IV fluids continued. His glucose is 110, prealbumin 14.7, albumin 2.8, magnesium 2.2. It is noted his last chest x-ray was on 06/23/2023 with suggestion of increased interstitial markings, potentially c ould reflect an inflammation. We will repeat a chest x-ray in the morning. Medications: Aspirin 81 mg daily, B12 injections, duloxetine was increased to 60 mg daily, Lovenox 4 0 mg subcutaneously daily for DVT prophylaxis, gabapentin 300 mg twice daily for neuropathic pain, No rco 5/325 every 6 hours as needed for pain, Prinivil 5 mg twice daily, magnesium oxide 400 mg twice d aily, Megace 400 mg twice daily, midodrine for pressure support 5 mg twice daily, Ensure Enlive 237 m L daily, Seroquel 25 mg at bedtime for psychotic behavior, Senokot-S 2 twice daily, thiamine 100 mg d aily. Progress Made With Physical, Occupational, And Speech Therapy: Today with physical therapy, complete d bed mobility including turning in bed with minimum assistance to contact guard assistance. Complet ed lfi-jg-ajgsn with ncxwodm-mc-inebrsll assistance. Did lower extremity exercises with Thera-Band, but did not readily participate and be encouraged repeatedly to keep participating. With occupationa l therapy, maximum assistance for lower body dressing in supine position, dependent for footwear, mod erate assistance for upper body dressing, maximum assistance with zzkdae-ba-ouk transfers at edge of bed. With speech therapy, needed maximum cues to attend pictures, repeated 2 of pending from the [facility], did not answer yes/no questions. I pointed any pictures during an auditory word recognition t ask. Mr. Waller is making very slow significant progress with his physical, occupational, and speech ther apy. He appears to be very much less enthusiastic. Assessment: Mr. Waller is a 72-year-old patient in rehabilitation unit with left hemispheric stroke , expressive and receptive aphasia, right-sided weakness. He does have depression and is at risk of aspiration. He does have dehydration, orthostatic hypotension, elevated BUN and creatinine. His add itional comorbidities are constipation, insomnia, malnutrition, panic, and dehydration. Plan: 1.He will continue with IV fluids. 2.He will have a chest x-ray to rule out pneumonia. 3.Continue with physical, occupational, and speech therapy for 3.5 hours, 5 of 7 days. 4.Continue midodrine for pressure support, Senokot for constipation, Seroquel for psychosis, Protoni x for GE reflux, Cymbalta again increased for his depression. Comorbidities That Are Impacting Rehabilitation: Currently, he does appear significantly depressed, Cymbalta is improved. He is having difficulty maintaining hydration, requiring IV fluids and continu e also malnourished. He is on protein supplementation added. If need be, of course his antibiotics wi ll be addressed. LB/MODL Voice ID: [id number] Report ID: [id number]
--- NOTE | 2023-07-06 22:19 | RAD REPORT ---
EXAM DESCRIPTION: ALIZAChest Single View07/06/2023 8:33 pm CLINICAL HISTORY: Rule out pneumonia COMPARISON: Chest Single View dated 06/23/2023; Chest Single View dated 06/19/2023; Chest Pa And Lat (2 Views) dated 02/01/2023; Chest Single View dated 12/04/2018 TECHNIQUE: Portable AP view of the chest. FINDINGS: Decreased inspiratory effort limits evaluation. The lungs are clear. No pneumothorax or e ffusion. The cardiomediastinal contours are unremarkable. IMPRESSION: No acute cardiopulmonary process.
[2023-07-07 04:26] LABS: Albumin 2.8 g/dL (3.4-5.0); Anion Gap 9.3 mEq/L (5.0-15.0); Magnesium 2.2 mg/dL (1.6-2.4); Potassium 4.3 mEq/L (3.5-5.1); Prealbumin 18.4 mg/dL (20-40)
--- NOTE | 2023-07-07 22:25 | PN ---
Date of Progress Note: 07/07/2023 Time Of Service: 1:50 p.m. Subjective: Mr. Waller is doing better today than yesterday, more interactive. He is at this point trying to eat, although he is using the knife instead of the fork and that had to be replaced, but h lizz was very unsuccessful trying to get the food to his mouth and his son did assist him to get food to his mouth, which he was able to eat and swallow without difficulty. Objective: No fevers, chills. No nausea, vomiting. No other complaints or issues. Physical Examination: Vital Signs: Blood pressure 110/58, pulse 70, respiratory rate 16, temperature 97.7, oxygen saturati on 95%. General: Mr. Waller is sitting in bed and family is at bedside. Of course, he still has a signific ant deficit in terms of his stroke affecting his right upper and lower extremity from the left hemisp heric stroke. He does have the expressive and receptive aphasia. He has dehydration, orthostatic hy potension, elevated BUN and creatinine, constipation, insomnia, malnutrition. Plan: 1.Continue with physical, occupational, and speech therapy for 3.5 hours, 5 of 7 days. 2.Continue IV fluids. Continue with help for eating. He also has had a repeat chest x-ray done on 07/06/2023, the study showed no acute cardiopulmonary processes. Medications: Medications have been reviewed and are unchanged. Laboratory Studies: White blood cell count 4.5, hemoglobin 10.1, platelets 278. Sodium 140, potassi um 4.3, chloride 113, carbon dioxide 22, BUN 25, creatinine 1.12, glucose 105, magnesium 2.2, albumin 2.8. Prealbumin improved from 14.7 on the to 18.4 on the . Progress Made With Physical, Occupational, And Speech Therapy: Today with physical therapy, he did a mbulate 6 feet 4 times in the parallel bars with moderate assistance. He also ambulated 48 feet with a rolling walker, may have minimal assistance with 2 therapist along with wheelchair following. He also did another 45 feet with a rolling walker with moderate assistance and mobilized a wheelchair 16 0 feet with minimal assistance. With occupational therapy, maximum assistance for lower body dressin g, supine position, required significant setup assistance for him to manipulate food and to eat. Wit h speech therapy, he used auditory word recognition in a field of 10 with 0% accuracy and 5 single wo rds were repeated with 90% accuracy. Maximum cues were needed. He did demonstrate prolonged mastica tion and did pocket on the right side with oral stasis throughout the mouth, needed moderate cues to use lingual sweep and liquid wash to clear oral cavity. Family education was provided. Mr. Waller is making a very slow progress with his physical, occupational, and speech therapy given his significant stroke affecting the left brain and right body with expressive receptive aphasia and right-sided weakness which is down the side. Assessment: Mr. Waller is a 72-year-old patient in the rehabilitation unit with a left hemispheric stroke producing dense paresis of the right upper and lower extremity, expressive or receptive aphasi a. He has multiple comorbid conditions as listed. Plan: 1.Continue with physical, occupational, and speech therapy for 3.5 hours, 5 of 7 days. 2.Continue with IV hydration. Continue with all medications to help him to thrive. The patient, jessy silva, will likely have to be discharged to [facility] as he is not making good degree of progre ss that will be safe for him to be discharged home. ROQUE/BRIAN Voice ID: [id number] Report ID: [id number]
[2023-07-08 03:42] LABS: Absolute Eosinophils 0.1 K/uL (0-0.5); Absolute Lymphocytes (CBC) 1.3 K/uL (0.7-4.9); Absolute Monocytes 0.2 K/uL (0.1-1.3); Basophils % 0.5 % (0-1.3); Eosinophils % 1.5 % (0-4.4); Hematocrit 26.9 % (39.6-49.0); Hemoglobin 9.5 g/dL (13.6-17.9); Lymphocytes % 35.7 % (15.3-44.8); MCH 32.2 pg (27.0-35.0); MCHC 35.2 g/dL (32.0-36.0); MCV 91.7 fL (80-100); MPV 6.8 fL (7.6-11.3); Monocytes % 6.8 % (3.3-12.3); Neutrophils % 55.5 % (41.7-73.7); Nucleated Red Blood Cells % 0.1 % (0-0); Platelets 217 thou/uL (152-406); RBC Red Blood Cell Count 2.94 M/uL (4.33-5.43); Red Cell Distribution Width 14.3 % (12.1-15.2)
--- NOTE | 2023-07-08 13:20 | P.RH.PN ---
Estimated Length of Stay: 22 Expected Discharge Date: 07/09/23 Discharge Disposition Plan: Home Family Support: Yes Alf Goal: Mobility, Transfers, Self Care Vital Signs: Last Vital Signs Temp 97.0 F 07/08/23 07:08 Pulse 70 07/08/23 07:08 Resp 18 07/08/23 07:08 BP 169/86 H 07/08/23 07:08 Pulse Ox 95 07/08/23 07:08 Laboratory: Laboratory Last Values WBC 3.60 thou/uL (4.3-10.9) L 07/08/23 03:10 RBC 2.94 M/uL (4.33-5.43) L 07/08/23 03:10 Hgb 9.5 g/dL (13.6-17.9) L 07/08/23 03:10 Hct 26.9 % (39.6-49.0) L 07/08/23 03:10 MCV 91.7 fL (80-100) 07/08/23 03:10 MCH 32.2 pg (27.0-35.0) 07/08/23 03:10 MCHC 35.2 g/dL (32.0-36.0) 07/08/23 03:10 RDW 14.3 % (12.1-15.2) 07/08/23 03:10 Plt Count 217 thou/uL (152-406) 07/08/23 03:10 MPV 6.8 fL (7.6-11.3) L 07/08/23 03:10 Neutrophils % 55.5 % (41.7-73.7) 07/08/23 03:10 Lymphocytes % 35.7 % (15.3-44.8) 07/08/23 03:10 Monocytes % 6.8 % (3.3-12.3) 07/08/23 03:10 Eosinophils % 1.5 % (0-4.4) 07/08/23 03:10 Basophils % 0.5 % (0-1.3) 07/08/23 03:10 Absolute Neutrophils 2.0 K/uL (1.8-8.0) 07/08/23 03:10 Absolute Lymphocytes 1.3 K/uL (0.7-4.9) 07/08/23 03:10 Absolute Monocytes 0.2 K/uL (0.1-1.3) 07/08/23 03:10 Absolute Eosinophils 0.1 K/uL (0-0.5) 07/08/23 03:10 Absolute Basophils 0.0 K/uL (0-0.5) 07/08/23 03:10 Platelet Estimate Adeq 06/23/23 03:28 Morphology Comment Not seen (NOT SEEN) 06/23/23 03:28 Sodium 140 mEq/L (136-145) 07/07/23 03:36 Potassium 4.3 mEq/L (3.5-5.1) 07/07/23 03:36 Chloride 113 mEq/L (98-107) H 07/07/23 03:36 Carbon Dioxide 22 mEq/L (21-32) 07/07/23 03:36 Anion Gap 9.3 mEq/L (5.0-15.0) 07/07/23 03:36 BUN 25 mg/dL (7-18) H 07/07/23 03:36 Creatinine 1.12 mg/dL (0.70-1.30) 07/07/23 03:36 Est GFR (CKD-EPI) 71 ml/min (=/>90) L 07/07/23 03:36 Glucose 105 mg/dL (74-106) 07/07/23 03:36 POC Glucose 117 mg/dL (65-120) 06/19/23 11:14 Calcium 8.7 mg/dL (8.5-10.1) 07/07/23 03:36 Magnesium 2.2 mg/dL (1.6-2.4) 07/07/23 03:36 Albumin 2.8 g/dL (3.4-5.0) L 07/07/23 03:36 Prealbumin 18.4 mg/dL (20-40) L 07/07/23 03:36 Urine Color Yellow (Yellow) 07/04/23 05:10 Urine Clarity Turbid (Clear) H 07/04/23 05:10 Urine pH 6.5 (5.0-7.0) 07/04/23 05:10 Ur Specific Amity 1.025 (1.005-1.030) 07/04/23 05:10 Glucose (UA)(Auto) Negative (Negative) 07/04/23 05:10 Urine Ketones Negative (Negative) 07/04/23 05:10 Urine Blood Negative (Negative) 07/04/23 05:10 Urine Nitrite Negative (Negative) 07/04/23 05:10 Urine Bilirubin Negative (Negative) 07/04/23 05:10 Urine Urobilinogen 1+ (Normal) H 07/04/23 05:10 Ur Leukocyte Esterase 250 Krystian/uL (Negative) H 07/04/23 05:10 Urine RBC <5 /HPF (None Seen) 07/04/23 05:10 Urine WBC 10-20 /HPF (<5) H 07/04/23 05:10 Ur Squamous Epith Cells <5 /HPF (None Seen) 07/04/23 05:10 Urine Bacteria <20 /HPF (<20) 07/04/23 05:10 Urine Mucus Slight /HPF (None Seen) 07/04/23 05:10 Urine Culture Reflexed Reflexed 07/04/23 05:10 Urine Total Protein Trace (Negative) H 07/04/23 05:10 Smear Scan Ok (OK) 06/23/23 03:28 Weight: 189 lb 14.4 oz Wound Present: No Closed Surgical Incision Present: Yes Negative Pressure Wound Therapy Present: No Physician Update: Labs reviewed. He is still dehydrated and malnurished. Pain is managed. His depression is still present to a moderate degree. He is approved up to 07/12/23. Met 1/4 short term and 0/4 custodial goals. He did better with speech therapy today. He does not want to do physical therapy, RW 48' with mod to min assist. Transfers are better with sit to stand with a rolling walker and min assist. Able to sit on tub bench. Give another L of NS. 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 Please see the Rehabilitation Signature page for all necessary signatures.
[2023-07-08] MEDS: NA CHLORIDE 0.9% 1,000 ML IV SCH (14:36)
[2023-07-08] MEDS ORDERED: NA CHLORIDE 0.9% 1,000 ML IV SCH (15:00)
[2023-07-08] MEDS: MAGNESIUM HYDROXIDE 8% 30 ML PO PRN (16:31)
--- NOTE | 2023-07-09 20:32 | RAD REPORT ---
EXAM DESCRIPTION: RAD - Knee Right 2 View - 07/09/2023 8:23 pm CLINICAL HISTORY: right knee pain COMPARISON: Knee Right 2 View dated 06/17/2023 FINDINGS: No fracture or dislocation. No significant joint effusion. Atherosclerosis.
[2023-07-10] MEDS: LIDOCAINE 4% PATCH TOP SCH (08:47)
[2023-07-11] MEDS: NA CHLORIDE 0.9% 1,000 ML IV SCH (15:13)
[2023-07-11 21:17] VITALS: TEMP 98.4
--- NOTE | 2023-07-12 01:45 | PN ---
Date of Progress Note: 07/11/2023 Time Of Service: 1:15 p.m. Subjective: Mr. Waller is sitting in his chair besides his bed, did appear to respond as the therap ist was trying to get him to adjust his position in the chair by sitting up and pushing back slightly . He again is significantly aphasic, unable to have any extended conversation and does have 1 word r esponses. Objective: No fevers, chills, nausea, vomiting, myalgias, arthralgias. Physical Examination: Vital Signs: Blood pressure 144/85, pulse 82, respiratory rate of 16, temperature 97.6, oxygen satur ation of 99%. General: Mr. Waller is again sitting in a chair besides the bed. He has significant paresis of his right upper and lower extremity. He has expressive and receptive aphasia and some decreased respons e sensation of a right compared to the left. Laboratory Studies: No new laboratory studies. X-ray Imaging: Knee x-ray was done on the 27 as the patient did complain of some pain in the right k nee. Study showed no fracture or dislocation. No significant joint effusion. There is arthrosclero sis noted. Medications: Medications have been reviewed and are unchanged. Progress Made With Physical, Occupational, And Speech Therapy: Today with physical therapy, he did c omplete gait training with a rolling walker, 2 sets, maximum assistance. He did transitions in paral lel bars, gait training 3 times in the parallel bars, which is 8 feet each, maximum assistance times 1 to 2 for every 5-8 feet. Maximum planning assistant for bed mobilization. Multiple [id number] transfers, maximum assistance. With occupational therapy, bathing, maximum assistance; upper body dressing, ma ximal assistance; lower body dressing, maximal assistance. Did show increasing confusion and aphasia s, trying to follow commands as he worked with the therapists. With speech, repeated single word, na me pictures with 90% accuracy, and maximum cues. Yes-no questions asked with 50% accuracy. Auditory word recognition demonstrated an appeal of 2 with 50% accuracy because the patient always points to the picture on his left even when both pictures are in his left side of visual field. It is noted th at it is an improvement that he is able to point towards his pictures even though on his left field. Mr. Waller is making very slow progress with physical, occupational, speech therapy given the signif icant stroke with dense paresis on the right side and expressive and receptive aphasia essentially gl obal. The patient has been in the unit for 26 days and [facility]. The patient's family working up the details of his transfer as his insurance is able to change on the fi rst of the month and should be able to accommodate the patient in his [facility] facility. The patient's family may have to pay for 1 day out of pocket around 180 dollars and that this was discuss ed, and at this point, they are holding out to not necessarily make that payment, but it may be done. Assessment And Plan: Mr. 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 Plan: 1.Continue with physical, occupational, and speech therapy. 2.Continue Lovenox for DVT prophylaxis, Cymbalta for depression, B12 injections for energy, aspirin for stroke risk reduction, guaifenesin for cough, magnesium oxide for muscle spasms, Megace for poor appetite. Midodrine use for pressure support, Protonix for GE reflux, quetiapine for any potential p sychotic features, and he did receive normal saline at 3 L, but now currently 75 cc an hours. LB/MODL Voice ID: [id number] Report ID: [id number]
[2023-07-12 06:48] LABS: Absolute Eosinophils 0.1 K/uL (0-0.5); Absolute Lymphocytes (CBC) 0.9 K/uL (0.7-4.9); Absolute Monocytes 0.4 K/uL (0.1-1.3); Absolute Neutrophil 3.1 K/uL (1.8-8.0); Basophils % 0.8 % (0-1.3); Eosinophils % 1.2 % (0-4.4); Hematocrit 28.3 % (39.6-49.0); Hemoglobin 9.9 g/dL (13.6-17.9); Lymphocytes % 20.2 % (15.3-44.8); MCH 31.9 pg (27.0-35.0); MCHC 34.8 g/dL (32.0-36.0); MCV 91.6 fL (80-100); MPV 7.2 fL (7.6-11.3); Monocytes % 9.1 % (3.3-12.3); Neutrophils % 68.7 % (41.7-73.7); Nucleated Red Blood Cells % 0.1 % (0-0); Platelets 186 thou/uL (152-406); RBC Red Blood Cell Count 3.09 M/uL (4.33-5.43); Red Cell Distribution Width 14.3 % (12.1-15.2)
[2023-07-12 07:11] LABS: Albumin 2.8 g/dL (3.4-5.0); Anion Gap 8.2 mEq/L (5.0-15.0); Magnesium 1.9 mg/dL (1.6-2.4); Potassium 4.2 mEq/L (3.5-5.1); Prealbumin 18.9 mg/dL (20-40)
[2023-07-12 09:50] VITALS: BP 156/81
== END 2023-07-12 14:45 | DRG 56 ==
LOC: 5TH 12:10
PROVIDERS: ADMIT Psychiatry & Neurology Neurology with Special Qualifications in Child Neurology; ATTEND Psychiatry & Neurology Neurology with Special Qualifications in Child Neurology
DX: I69.354 Hemiplegia and hemiparesis following cerebral infarction affecting left non-dominant side (principal); J69.0 Pneumonitis due to inhalation of food and vomit; K22.10 Ulcer of esophagus without bleeding; N39.0 Urinary tract infection, site not specified; E46 Unspecified protein-calorie malnutrition; I69.391 Dysphagia following cerebral infarction; I69.320 Aphasia following cerebral infarction; K59.00 Constipation, unspecified; E86.0 Dehydration; I10 Essential (primary) hypertension; I25.10 Atherosclerotic heart disease of native coronary artery without angina pectoris; R73.9 Hyperglycemia, unspecified; K21.9 Gastro-esophageal reflux disease without esophagitis; R41.0 Disorientation, unspecified; E78.5 Hyperlipidemia, unspecified; F32.89 Other specified depressive episodes; G47.00 Insomnia, unspecified; Z68.28 Body mass index [BMI] 28.0-28.9, adult
CPT/HCPCS: 36415; 71045; 80048; 81001; 82040; 82947; 83735; 84134; 85025; 87077; 87086; 87088; 87186; 92507; 92523; 92526; 92610; 97110; 97112; 97116; 97129; 97163; 97165; 97530; 97542; J0696; J1650; J2001; J3420; J7030; J7040; J7050